=== PATIENT | female | born 1960 | race Caucasian/White ===

== ENCOUNTER 2018-07-09 11:51 | Inpatient (IN) ==
--- NOTE | 2018-07-09 12:31 | Diag Imaging Result Doc PS360 ---
EXAM: CHEST-1 VIEW HISTORY: sob TECHNIQUE: Chest single view COMPARISON: None. FINDINGS: The lungs are well expanded. There are increased interstitial markings in the mid lungs and bases. Heart is borderline mildly prominent. There is a small left pleural effusion. IMPRESSION: Bilateral infiltrates and/or pulmonary edema. Follow-up PA and lateral recommended. Electronically signed by Marek Santana 07/09/2018 12:29 PM
[2018-07-09 13:15] LABS: URINE SOURCE CLEAN CATCH
[2018-07-09 13:17] LABS: BILIRUBIN URINE NEGATIVE (NEGATIVE); BLOOD URINE NEGATIVE (NEGATIVE); COLOR YELLOW; GLUCOSE URINE NEGATIVE (NEGATIVE); KETONE URINE TRACE mg/dL (NEGATIVE); LEUKOCYTES URINE LARGE (NEGATIVE); NITRITE URINE NEGATIVE (NEGATIVE); PROTEIN URINE 30 mg/dL (NEGATIVE); SP GRAVITY URINE 1.021; TURBIDITY URINE CLEAR (CLEAR); UR EPITHELIAL CELLS <10 /HPF (<10); URINE BACTERIA NEGATIVE /HPF; UROBILINOGEN URINE NORMAL (NORMAL)
[2018-07-09 13:26] LABS: BASO# 0.04 X1000 (0.0-0.2); BASO% 0.2 % (0.0-0.8); EOS# 0.01 X1000 (0.0-0.7); EOS% 0.1 % (0.0-10.0); HEMATOCRIT 42.5 % (37.0-47.0); HEMOGLOBIN 14.1 g/dL (12.0-16.0); IMM GRAN% 0.5 % (0.0-0.5); LYMPH# 1.14 X1000 (1.2-3.4); LYMPH% 5.7 % (20.5-51.1); MCH 29.6 PG (27-31); MCHC 33.2 g/dL (33-37); MCV 89.3 FL (81-99); MONO# 1.04 X1000 (0.11-0.59); MONO% 5.2 % (1.7-9.3); MPV 10.1 FL (7.4-10.4); NEUT# 17.64 X1000 (1.4-6.5); NEUT% 88.3 % (42.2-75.2); PLT 298 X1000 (130-400); RBC 4.76 XMIL (4.2-5.4); RDW 14.4 % (11.5-14.5); WBC 19.97 X1000 (4.8-10.8)
[2018-07-09 13:32] LABS: INR 0.93; PROTIME 13.3 Seconds (11.0-16.0)
[2018-07-09 13:33] LABS: PTT 27.7 Seconds (22.3-41.8)
[2018-07-09 13:50] LABS: BANDS 2 % (0-1); LYMPHS 5 % (21-51); MONO 4 % (1-9); SEGS 89 % (42-75)
[2018-07-09 13:51] LABS: AGAP 16; ALB/GLOB RATIO 1.4; ALBUMIN 4.3 g/dL (3.5-5.0); ALKALINE PHOSPHATASE 105 U/L (32-104); BUN 22 mg/dL (8-22); CALCIUM 9.9 mg/dL (8.8-10.2); CHLORIDE 98 mmol/L (98-107); CK PROFILE 146 U/L (24-173); COSMO 288; CREATININE 0.9 mg/dL (0.5-0.9); ESTIMATED GFR > 60; GLUCOSE 230 mg/dL (70-104); GOT 22 U/L (10-30); GPT 24 U/L (10-36); POTASSIUM 4.4 mmol/L (3.5-5.1); SODIUM 139 mmol/L (136-145); TCO2 25 mmol/L (25-35); TOTAL BILIRUBIN 0.56 mg/dL (0.20-1.00); TOTAL PROTEIN 7.3 g/dL (6.3-8.3)
[2018-07-09] MEDS ORDERED: VANCOMYCIN 1 GM/NS 1 GM/250 ML IVPB IV ONE (14:07)
[2018-07-09] MEDS ORDERED: ZOSYN 2.25 GM in NS 50 ML IV ONE (14:07)
[2018-07-09] MEDS ORDERED: DUONEB (A & A) INH ONE (14:14)
[2018-07-09] MEDS ORDERED: DECADRON IV ONE (14:14)
--- NOTE | 2018-07-09 14:28 | PROVIDER DOCUMENTATION ---
This chart was entered by Laura Ribeiro Scribe, acting as scribe for Vi Godwin CRNP. HPI-Respiratory General - General Chief Complaint: Cough Stated Complaint: DR BELL REFERRED Time Seen by Provider: 07/09/18 13:55 Source: patient Allergies/Adverse Reactions: Patient Allergies Allergy/AdvReac Type Severity Reaction Status Date / Time levofloxacin [From Levaquin] Allergy Unknown Verified 07/09/18 13:05 nitrofurantoin Allergy Unknown Verified 07/09/18 13:05 [From Macrodantin] Sulfa (Sulfonamide Allergy Unknown Verified 07/09/18 13:05 Antibiotics) Home Medications: Home Medication List Medication Instructions Recorded Confirmed Last Taken Type Alprazolam [Xanax] 1 mg PO PRN PRN 03/27/18 07/09/18 04/02/18 23:00 History 1 Amitriptyline HCl 100 mg PO HS 03/27/18 07/09/18 04/02/18 23:00 History 100 Aspirin 81 mg PO DAILY 03/27/18 07/09/18 03/26/18 History 81 Fluticasone/Salmeterol [Advair 1 each IH BID 03/27/18 07/09/18 04/03/18 04:00 History 500-50 Diskus] 1 Gabapentin [Neurontin] 800 mg PO TID 03/27/18 07/09/18 04/02/18 23:00 History 800 Liraglutide [Victoza] 18 mg SQ DAILY 03/27/18 07/09/18 04/02/18 09:00 History 18 Metformin HCl [Glucophage] 1,000 mg PO BID 03/27/18 07/09/18 04/02/18 23:00 History 1000 Nitroglycerin [Nitrostat] 0.4 mg SL PRN PRN 03/27/18 07/09/18 Unknown History Prednisone 10 mg PO DAILY 03/27/18 07/09/18 04/03/18 04:00 History 1 Sumatriptan Succinate [Imitrex] 100 mg PO PRN PRN 03/27/18 07/09/18 03/27/18 History 100 Tiotropium [place] Inhaler 1 puff INH RTDAILY 03/27/18 07/09/18 04/02/18 09:00 History [Spiriva] 1 Topiramate [Topamax] 50 mg PO QHS 03/27/18 07/09/18 04/02/18 23:00 History 5 Venlafaxine [Effexor] 75 mg PO DAILY 03/27/18 07/09/18 04/03/18 04:00 History 75 Brimonidine 0.15% Ophth Soln 1 drop BOTH EYES BID 04/03/18 07/09/18 04/02/18 23:00 History [Alphagan P 0.15% Ophth Soln] 1 Latanoprost 0.005% Oph Soln 1 drop BOTH EYES HS 04/03/18 07/09/18 04/02/18 23:00 History [Xalatan 0.005% Oph Soln] 2 ATORVAstatin [Lipitor] 1 tab PO QHS 07/09/18 07/09/18 Unknown History Levothyroxine [Synthroid] 1 tab PO DAILY 07/09/18 07/09/18 Unknown History Metoprolol Succinate E.r. [Toprol 0.5 tab PO DAILY 07/09/18 07/09/18 Unknown History Xl] Nitrofurantoin Meade/Macrocryst 1 tab PO DAILY 07/09/18 07/09/18 Unknown History [Macrobid] - History of Present Illness-Resp Nature of Presenting Problem: 58 yof hx of pna presents with cc of productive cough x 1 month worsening on Saturday with green thick mucus. Also reports fever, chills, wheezing, and chest tightness. Reports went to Dr. Bell this morning whom did CXR and was diagnosed with PNA. Pt reports for the past 4 years that she had to be admitted for the past 4 years in once in June and once in November for Pneumonia. Reports having to use rescue inhaler and nebulizer frequently. Quality of Pain: reports: tightness Onset/Duration: reports: 2 days ago (Worsened), other (x2 months) Timing: reports: still present, getting worse Exposure: reports: unknown cause Cough Quality/Degree: reports: productive cough Episode Frequency: occasional episodes Current Respiratory Medication Therapy: Initiated albuterol/atrovent inhale, Initiated A/A nebulizer, Initiated prednisone, Initiated albuterol, Initiated singulair Modifying Factors: improves with: albuterol inhaler, albuterol nebulizer, rest. worse with: exertion Associated Symptoms: reports: chest pain/soreness, cough, fever/chills, muscle/bodyaches, shortness of breath, wheezing. denies: dizziness, facial pain, headache, nasal congestion, sore throat, sweaty Similar Symptoms Previously?: Yes (See HPI) Recently seen or treated by another doctor?: Yes (Dr. Bell PCP) Review of Systems - Adult - REVIEW OF SYSTEMS - ADULT Constitutional: reports: chills, fever. denies: fatique, weight gain, weight loss Eyes: denies: discharge, blurred vision, redness Ears, Nose, Mouth & Throat: denies: ear pain, sinus problem, hoarseness, throat pain Cardiovascular: reports: chest pain (Chest tightness/pain from coughing). denies: irregular heart rate, palpitations, syncope Respiratory: reports: see HPI, cough, shortness of breath, wheezing. denies: dyspnea on exertion Gastrointestinal: denies: abdominal pain, nausea, vomiting Genitourinary: denies: dysuria, frequent UTI's, urgency Musculoskeletal: reports: muscle aches. denies: bone pain, joint pain, neck pain Integumentary: denies: hives, mole changes, skin thickening Neurological: reports: no symptoms reported Psychiatric: reports: no symptoms reported Endocrine: reports: no symptoms reported All Other Systems: Reviewed and Negative Past History - Adult - PAST MEDICAL HISTORY-ADULT Review of Records: reports: Old Records Reviewed, Nursing Assessment Review, Medications Reviewed, Social history reviewed & non-contributory. Major Childhood Illnesses: reports: denies history Cardiovascular: reports: CAD, HTN, hyperlipidemia Respiratory: reports: bronchitis (chronic), pneumonia, other (sarcoidosis & nocturnal hypoxemia) Gastrointestinal: reports: denies history Obstetrical/Gynecological: reports: endometriosis Genitourinary: reports: kidney stones Musculoskeletal: reports: denies history Neurological: reports: denies history Psychiatric: reports: anxiety, depression Endocrine/Immune: reports: Diabetes Diabetes Type: Type 2 Diabetes controlled by:: PO Meds Other Conditions: reports: cataract/glaucoma, eye problems/injury - PRIOR HOSPITALIZATIONS Prior Hospitalizations: reports: for similar symptoms Hospitalization Comment: Reports every June/November for past 4 years - IMMUNIZATION STATUS Childhood Immunizations: See Nurse Assessment Flu Vaccine: See Nurse Assessment - FAMILY HISTORY Family History: reviewed, not pertinent - SOCIAL HISTORY Smoking: denies Substance Use: none/never Physical Exam-General - PHYSICAL EXAM-ADULT Initial Vital Signs Reviewed: Yes - CONSTITUTIONAL General Appearance: alert, mild distress. negative: appears well - EYES Eyes: PERRL/EOMI, pink conjunctivae - HEAD, EARS, NOSE, MOUTH & THROAT HENMT: normocephalic/atraumatic, moist mucous membranes - NECK Neck: non-tender, full range of motion, supple, normal inspection - RESPIRATORY Respiratory: chest non-tender, no pleuratic chest pain, no accessory muscle use, wheezing (all lung masterson moderate.), other (pt is winded) - CARDIOVASCULAR Cardiovascular: regular rate, rhythm, no gallop, no murmur - GASTROINTESTINAL (ABDOMEN) Abdominal Exam: non tender, soft, no organomegaly, no pulsatile mass - MUSCULOSKELETAL Extremity: normal range of motion, non-tender, normal gait - SKIN Integumentary: normal color, normal turgor, warm/dry - NEUROLOGIC Neurologic: grossly normal - PSYCHIATRIC Psych/Mental Status: normal mood/affect, normal thought content, normal thought process, oriented x 3 Progress - PLAN OF CARE/RESULTS Progress/Plan/Lab Results: Vital Signs - 8 hr 07/09/18 12:05 07/09/18 12:40 07/09/18 13:53 Temperature 96.8 F L Pulse Rate 104 H 96 H 91 H Respiratory Rate 24 41 H 28 H Blood Pressure 96/48 97/53 109/66 O2 Sat by Pulse Oximetry 94 L 94 L 93 L 07/09/18 14:01 07/09/18 14:02 07/09/18 14:10 Temperature 98.3 F Pulse Rate 90 89 88 Respiratory Rate 38 H 37 H 25 H Blood Pressure 107/64 O2 Sat by Pulse Oximetry 94 L 94 L 96 07/09/18 14:20 07/09/18 14:30 07/09/18 14:31 Temperature Pulse Rate 88 83 83 Respiratory Rate 29 H 23 37 H Blood Pressure 96/64 O2 Sat by Pulse Oximetry 94 L 94 L 93 L 07/09/18 14:40 07/09/18 14:50 07/09/18 15:00 Temperature Pulse Rate 85 82 84 Respiratory Rate 42 H 35 H 34 H Blood Pressure O2 Sat by Pulse Oximetry 94 L 95 92 L 07/09/18 15:01 07/09/18 15:02 07/09/18 15:10 Temperature Pulse Rate 83 83 83 Respiratory Rate 31 H 37 H 25 H Blood Pressure 106/63 O2 Sat by Pulse Oximetry 93 L 93 L 93 L 07/09/18 15:46 Temperature Pulse Rate 83 Respiratory Rate 34 H Blood Pressure O2 Sat by Pulse Oximetry 92 L Laboratory Results - last 24 hr 07/09/18 07/09/18 07/09/18 12:53 12:53 12:53 WBC 19.97 H RBC 4.76 Hgb 14.1 Hct 42.5 MCV 89.3 MCH 29.6 MCHC 33.2 RDW Std Deviation 14.4 Plt Count 298 MPV 10.1 Immature Gran % (Auto) 0.5 Neut % (Auto) 88.3 H Lymph % (Auto) 5.7 L Meade % (Auto) 5.2 Eos % (Auto) 0.1 Baso % (Auto) 0.2 Immature Gran # (Auto) 0.10 H Neut # (Auto) 17.64 H Lymph # (Auto) 1.14 L Meade # (Auto) 1.04 H Eos # (Auto) 0.01 Baso # (Auto) 0.04 Segmented Neutrophils 89 H Band Neutrophils 2 H Lymphocytes 5 L Monocytes 4 PT 13.3 INR 0.93 PTT (Actin FS) 27.7 Sodium 139 Potassium 4.4 Chloride 98 Carbon Dioxide 25 Anion Gap 16 BUN 22 Creatinine 0.9 Estimated GFR/1.73 m2 > 60 BUN/Creatinine Ratio 24 Glucose 230 H Calculated Osmolality 288 Calcium 9.9 Total Bilirubin 0.56 AST 22 ALT 24 Alkaline Phosphatase 105 H Creatine Kinase 146 Troponin T Total Protein 7.3 Albumin 4.3 Globulin 3.0 Albumin/Globulin Ratio 1.4 Plasma Lactate Urine Source Urine Color Urine Turbidity Urine pH Ur Specific Hancock Urine Protein Ur Glucose (Stick) Ur Ketones (Stick) Urine Blood Urine Nitrite Urine Bilirubin Urobilinogen Dipstick Urine Leukocytes Urine WBC (Auto) Urine RBC (Auto) U Epithel Cells (Auto) Urine Bacteria (Auto) 07/09/18 07/09/18 07/09/18 12:53 12:53 13:00 WBC RBC Hgb Hct MCV MCH MCHC RDW Std Deviation Plt Count MPV Immature Gran % (Auto) Neut % (Auto) Lymph % (Auto) Meade % (Auto) Eos % (Auto) Baso % (Auto) Immature Gran # (Auto) Neut # (Auto) Lymph # (Auto) Meade # (Auto) Eos # (Auto) Baso # (Auto) Segmented Neutrophils Band Neutrophils Lymphocytes Monocytes PT INR PTT (Actin FS) Sodium Potassium Chloride Carbon Dioxide Anion Gap BUN Creatinine Estimated GFR/1.73 m2 BUN/Creatinine Ratio Glucose Calculated Osmolality Calcium Total Bilirubin AST ALT Alkaline Phosphatase Creatine Kinase Troponin T < 0.010 Total Protein Albumin Globulin Albumin/Globulin Ratio Plasma Lactate 2.3 H Urine Source CLEAN CATCH Urine Color YELLOW Urine Turbidity CLEAR Urine pH 7.0 Ur Specific [place] 1.021 Urine Protein 30 A Ur Glucose (Stick) NEGATIVE Ur Ketones (Stick) TRACE A Urine Blood NEGATIVE Urine Nitrite NEGATIVE Urine Bilirubin NEGATIVE Urobilinogen Dipstick NORMAL Urine Leukocytes LARGE A Urine WBC (Auto) 10-20 A Urine RBC (Auto) 10-20 A U Epithel Cells (Auto) <10 Urine Bacteria (Auto) NEGATIVE 07/09/18 15:16 WBC RBC Hgb Hct MCV MCH MCHC RDW Std Deviation Plt Count MPV Immature Gran % (Auto) Neut % (Auto) Lymph % (Auto) Meade % (Auto) Eos % (Auto) Baso % (Auto) Immature Gran # (Auto) Neut # (Auto) Lymph # (Auto) Meade # (Auto) Eos # (Auto) Baso # (Auto) Segmented Neutrophils Band Neutrophils Lymphocytes Monocytes PT INR PTT (Actin FS) Sodium Potassium Chloride Carbon Dioxide Anion Gap BUN Creatinine Estimated GFR/1.73 m2 BUN/Creatinine Ratio Glucose Calculated Osmolality Calcium Total Bilirubin AST ALT Alkaline Phosphatase Creatine Kinase Troponin T Total Protein Albumin Globulin Albumin/Globulin Ratio Plasma Lactate 1.5 Urine Source Urine Color Urine Turbidity Urine pH Ur Specific [place] Urine Protein Ur Glucose (Stick) Ur Ketones (Stick) Urine Blood Urine Nitrite Urine Bilirubin Urobilinogen Dipstick Urine Leukocytes Urine WBC (Auto) Urine RBC (Auto) U Epithel Cells (Auto) Urine Bacteria (Auto) Orders Category Date Time Status Cardiac Monitoring DIRECTED Care 07/09/18 12:13 Active IV Insertion ORDERED Care 07/09/18 12:13 Completed Notify MD of + Sepsis Screen NOW Care 07/09/18 12:13 Active CHEST-1 VIEW [RAD] Stat Exams 07/09/18 12:13 Completed BLOOD CULTURE [BLDCUL] Stat Lab 07/09/18 12:53 Results CBC WITH DIFF [HEME] Stat Lab 07/09/18 12:53 Completed CK PROFILE [SP CHEM] Stat Lab 07/09/18 12:53 Completed COMPREHENSIVE METABOLIC PANEL [CHEM] Stat Lab 07/09/18 12:53 Completed LACTATE, PLASMA [CHEM] Lab 07/09/18 15:16 Completed LACTATE, PLASMA [CHEM] Lab 07/09/18 18:15 Uncollected LACTATE, PLASMA [CHEM] Q3H Lab 07/09/18 13:00 Completed PROTIME WITH INR [COAG] Stat Lab 07/09/18 12:53 Completed PTT [COAG] Stat Lab 07/09/18 12:53 Completed TROPONIN T Stat Lab 07/09/18 12:53 Completed URINALYSIS W/POSS RFLX CULT [URINALYSIS] Stat Lab 07/09/18 12:53 Completed URINE CULTURE [RM] Routine Lab 07/09/18 13:31 Received Albuterol 2.5MG/Ipratrop 0.5MG [Duoneb (A & A)] Med 07/09/18 14:14 Discontinued 3 ml INH NOW ONE Albuterol 2.5MG/Ipratrop 0.5MG [Duoneb (A & A)] Med 07/09/18 15:39 Active 3 ml INH Q2H PRN PRN Dexamethasone [Decadron] Med 07/09/18 14:14 Discontinued 10 mg IV NOW ONE Piperacillin/Tazobactam [Zosyn] 2.25 gm Med 07/09/18 14:07 Discontinued 0.9% Sodium Chloride Inj [Ns] 50 ml IV NOW Vancomycin 1 gm/Ns Med 07/09/18 14:07 Discontinued 1 gm in 250 ml IV NOW Aerosol Treatments Routine Oth 07/09/18 14:17 Active Aerosol Treatments Routine Oth 07/09/18 15:39 Active Aerosol Treatments Stat Oth 07/09/18 14:17 Completed Aerosol Treatments Stat Oth 07/09/18 15:39 Completed Oxygen Device Stat Oth 07/09/18 12:13 Active EKG [EKG] Stat Ther 07/09/18 15:02 Ordered Transfer/Admit Order [TRANSFER] Routine Transfer 07/09/18 15:10 Ordered Lab results, imaging results, and plan of care discussed with patient who verbalizes understanding. Result Diagrams: 07/09/18 12:53 07/09/18 12:53 - XRAY 1 XRAY: Bilateral XRAY Study: Chest Impression: Abnormal (EXAM: CHEST-1 VIEW HISTORY: sob TECHNIQUE: Chest single view COMPARISON: None. FINDINGS: The lungs are well expanded. There are increased interstitial markings in the mid lungs and bases. Heart is borderline mildly prominent. There is a small left pleural effusion. IMPRESSION: Bilateral infiltrates and/or pulmonary edema. Follow-up PA and lateral recommended. Electronically signed by Marek Santana 07/09/2018 12:29 PM 07/09/18 1229 Interpreting Physician: Marek Santana MD Dictated Date/Time: 07/09/18 1228) - CONSULTS/PCP/HOSPITALIST Notification #1 *Consult/PCP/Hospitalist*: ERIC Rojas Hospitalist Time Discussed: 14:25 Reason/Comments: SIRS +ve, PNA Consult Disposition: Admit Departure - Departure Date of Disposition Decision: 07/09/18 Time of Disposition Decision: 14:25 DIAGNOSIS: SIRS (systemic inflammatory response syndrome) Bilateral pneumonia Qualifiers: Pneumonia type: due to unspecified organism Lung location: unspecified part of lung Qualified Code(s): J18.9 - Pneumonia, unspecified organism Disposition: ADMITTED INPATIENT 09 Certified Medical Emergency: Emergent Condition: Fair - Critical Care Note This patient required my direct & personal management of CC.: No Attestation - Physician/ GRETA Attestation Patient care was provided by Advanced Practice Provider:: Yes Advanced Practice Provider:: Vi Godwin Advanced Practice Provider documentation review:: The Mid-level provider documentation, treatment plan and medical decision making was reviewed by the physician who agrees with all treatment and medical decision making by the P. The physician spent face to face time with patient:: No Advanced Practice Provider documentation review:: Supervising physician onsite and consulted in the evaluation and care of this patient. The physician did not have a face to face encounter with the patient. This chart was documented by the indicated scribe, (Laura Ribeiro Scribe) and accurately reflects the services I performed and decisions made by me, Vi Godwin CRNP, as attested by the provider's signature.
[2018-07-09] MEDS ORDERED: DUONEB (A & A) INH PRN (15:39)
--- NOTE | 2018-07-09 18:26 | HISTORY AND PHYSICAL ---
PRIMARY CARE PHYSICIAN: Janice Barber MD. CHIEF COMPLAINT: Productive cough x1 month that progressively worsened. Subjective fever, chest tightness. Was seen at PCP office today. Had a chest x-ray and diagnosed with pneumonia, then sent to the ER for evaluation. HISTORY OF PRESENTING ILLNESS: This is a 58-year-old female who presents to [facility] ER after she was seen by her primary care physician today. States she has had a productive cough for 1 month that has progressively worsened, a subjective fever and chest tightness. She has a history of sarcoidosis and asthma. She had a chest x-ray at the primary care physician's office today that read pneumonia, so he sent her to the emergency room for evaluation. When she arrived, she had an O2 saturation of 94%. Her laboratory data showed a white blood cell count of 19.97, blood sugar was 230, plasma lactate of 2.3. Her chest x-ray showed bilateral infiltrates and/or pulmonary edema so she is being admitted for further evaluation and treatment. PAST MEDICAL HISTORY: Sarcoidosis, asthma, depression, diabetes type 2, hyperlipidemia, kidney stones, hypothyroidism, and neuropathy. PAST SURGICAL HISTORY: Bladder repair, hysterectomy and tonsillectomy. FAMILY HISTORY: Reviewed and noncontributory. SOCIAL HISTORY: She currently lives alone. Denied any tobacco, alcohol or illicit drug use. ALLERGIES: To Levaquin, Macrodantin, and sulfa drugs. HOME MEDICATIONS: A current list needs to be obtained, reconciled, reviewed and then will restart as appropriate. We will place an order for nursing to update and confirm home medications. LABORATORY DATA: Showed a white blood cell count of 19.97, hemoglobin 14.1, hematocrit 42.5, platelets 298. PT and INR of 13.3 and 0.93. Sodium of 139, potassium 4.4, chloride 98, CO2 of 25, BUN of 22, creatinine of 0.9 glucose 230. Creatine kinase of 146 with a troponin of less than 0.010. Plasma lactate of 2.3. Urinalysis was negative except for a large amount of leukocytes, but no bacteria. Chest x-ray showed bilateral infiltrates and/or pulmonary edema with a followup PA and lateral recommended. REVIEW OF SYSTEMS: She was positive for a subjective fever. Denied any chills, blurred vision, dizziness, chest pain. She has had a productive cough, shortness of breath denied any abdominal pain, constipation, diarrhea, burning or hurting with urination. PHYSICAL EXAMINATION: VITAL SIGNS: On arrival, she had a temperature of 96.8, pulse 104, respirations 24, blood pressure of 96/48, saturating 94% on room air. Currently, she has a blood pressure of 106/63 saturating 93% on room air. GENERAL: This is a 58-year-old, female who is sitting up in the bed and answers questions appropriately. HEENT: Normocephalic, atraumatic. Normal ENT inspection. Oropharynx and nares are clear. Eyes: Pupils are equal, round, and reactive to light and accommodation. Extraocular movements are intact. NECK: Normal inspection. Normal range of motion. LUNGS: With wheezing and rhonchi throughout entire posterior lung masterson. Equal lung expansion. Chest wall movement noted. Cough noted also, but nonproductive at this time. HEART: Regular rate and rhythm. No murmurs, rubs, or gallops. ABDOMEN: Soft, nontender, nondistended. Bowel sounds are present x4 quadrants. MUSCULOSKELETAL: She has 5/5 strength x4 extremities. NEUROLOGICAL: The cranial nerves 2-12 appear grossly intact. ASSESSMENT: 1. Sepsis. 2. Bilateral pneumonia. 3. Leukocytosis. 4. History of sarcoidosis. 5. Diabetes type 2. 6. Hypothyroidism. PLAN: She is being admitted to the medical unit. Placed on telemetry. Placed on O2 per protocol. Pattern blood sugars with sliding scale insulin, diabetic diet. Turn, cough, deep breathe q.2. DuoNeb q.4 hours and q.2 p.r.n. Solu-Medrol 80 mg IV q.8 and will wean as she improves, normal saline at 125 mL an hour, vancomycin per pharmacy protocol and Zosyn 3.375 g IV q.6. Again, nursing will need to update and confirm home medications and recheck a CBC, BMP in the a.m. with further orders after seen by attending. Dictated by ERIC Melendez for Jose Ott MD cc: ERIC Melendez MD Marlin D. Gill, MD Patient seen and examined by me. I agree with the assessment and plan. Dr. Ott. [facility]ENTER[facility]
[2018-07-09] MEDS ORDERED: HUMALOG SUBQ ONE (19:43)
[2018-07-09] MEDS: DUONEB (A & A) INH SCH ×2 (19:43→23:30)
[2018-07-09] MEDS ORDERED: VANCOMYCIN IV PER PHARMACY MISC SCH (19:43)
[2018-07-10] MEDS: NS 1,000 ML IV SCH ×5 (00:12→13:10)
[2018-07-10] MEDS: ZOSYN 3.375 GM in NS 50 ML IV SCH ×5 (00:13→23:15)
[2018-07-10] MEDS: SOLU-MEDROL IV SCH ×4 (00:13→20:30)
[2018-07-10] MEDS: ELAVIL PO SCH ×2 (00:15→01:28)
[2018-07-10] MEDS: TOPAMAX PO SCH ×2 (00:15→01:28)
[2018-07-10] MEDS: DUONEB (A & A) INH SCH ×5 (03:30→20:29)
[2018-07-10] MEDS: VANCOMYCIN 1 GM/NS 1 GM/250 ML IVPB IV SCH (06:01)
[2018-07-10 06:18] LABS: BASO# 0.01 X1000 (0.0-0.2); BASO% 0.1 % (0.0-0.8); HEMATOCRIT 35.8 % (37.0-47.0); HEMOGLOBIN 11.6 g/dL (12.0-16.0); IMM GRAN# 0.08 X1000 (0.0-0.04); IMM GRAN% 0.8 % (0.0-0.5); LYMPH# 0.83 X1000 (1.2-3.4); LYMPH% 8.3 % (20.5-51.1); MCH 29.2 PG (27-31); MCHC 32.4 g/dL (33-37); MCV 90.2 FL (81-99); MONO# 0.33 X1000 (0.11-0.59); MONO% 3.3 % (1.7-9.3); MPV 10.2 FL (7.4-10.4); NEUT# 8.74 X1000 (1.4-6.5); NEUT% 87.5 % (42.2-75.2); PLT 264 X1000 (130-400); RBC 3.97 XMIL (4.2-5.4); WBC 9.99 X1000 (4.8-10.8)
[2018-07-10 06:29] LABS: AGAP 18; BUN 25 mg/dL (8-22); CALCIUM 8.9 mg/dL (8.8-10.2); CHLORIDE 98 mmol/L (98-107); COSMO 289; CREATININE 0.8 mg/dL (0.5-0.9); ESTIMATED GFR > 60; GLUCOSE 228 mg/dL (70-104); POTASSIUM 3.4 mmol/L (3.5-5.1); SODIUM 139 mmol/L (136-145); TCO2 23 mmol/L (25-35)
--- NOTE | 2018-07-10 07:15 | EKG Report ---
Test Performed on : 07/09/2018 10:13:11 PM Test Reason : Chest tightness/SOB Blood Pressure : / mmHG Vent. Rate : 080 BPM Atrial Rate : 080 BPM P-R Int : 166 ms QRS Dur : 100 ms QT Int : 410 ms P-R-T Axes : 029 -32 078 degrees QTc Int : 472 ms Normal sinus rhythm. Left axis deviation ST & T wave abnormality, consider anterior ischemia Prolonged QT Abnormal ECG No previous ECGs available Unconfirmed Result
[2018-07-10] MEDS ORDERED: LASIX IV ONE (12:01)
--- NOTE | 2018-07-10 12:17 | PROGRESS NOTE ---
DATE: 07/10/2018 SUBJECTIVE: Patient resting in bed. She is somewhat dyspneic at rest. OBJECTIVE: Vital Signs: Temperature 97.8 degrees, pulse 78, respirations 18, blood pressure 122/70, and oxygen saturation is 95%. HEENT: She is atraumatic, normocephalic. Cardiovascular: S1, S2. Respiratory: She does have occasional rales noted in both lung masterson. Abdomen: Soft, nontender. No masses felt. Extremities: No evidence of edema. Central nervous system: No obvious focal deficits noted. LABORATORY: WBC is 9.9, hematocrit 35.8 with a platelet count of 264,000. Sodium is 139, potassium 3.4, chloride is 98, bicarb 23, BUN is 25, creatinine 0.8, and glucose is 228. UA shows large amount of leukocytes with 10-20 WBCs per high-power field. X-ray of chest done on 07/09/2018 shows evidence of bilateral pneumonia and pulmonary edema. ASSESSMENT AND PLAN: 1. Probable sepsis. Maintain patient on intravenous fluids. Continue antibiotics. Await culture report. 2. Bilateral pneumonia. Follow up on sputum culture and blood cultures. Continue antibiotics. 3. Probable pulmonary edema. We will cut down on the patient's IV fluids at this time. Monitor intakes and outputs as well as daily weights. Check a proBNP level, and give a dose of Lasix. 4. Hypokalemia. Replace potassium. Check magnesium level. 5. History of sarcoidosis. Aware. 6. Diabetes mellitus type 2. Monitor blood sugar levels. Maintain patient on sliding scale insulin. 7. Hypothyroidism. Maintain patient on levothyroxine. 8. Probable UTI. Follow up on urine cultures. 9. Deep vein thrombosis prophylaxis. Lovenox. 10. Gastrointestinal prophylaxis. Proton pump inhibitor. cc: Jose Ott MD
--- NOTE | 2018-07-10 12:20 | Diag Imaging Result Doc PS360 ---
EXAM: CHEST-1 VIEW 07/10/2018 HISTORY: pneumonia TECHNIQUE: AP portable at 1208 COMMENT: There is increasing opacification of the left lower lobe and lingula compared to 07/09/2018. The left heart border is now completely obscured. The right lung is essentially unchanged. IMPRESSION: Worsened left upper lobe and lower lobe pneumonia. Electronically signed by Flavio Foster 07/10/2018 12:18 PM
[2018-07-10 12:23] LABS: HEMOGLOBIN A1C 7.8 % (4.8-6.0)
[2018-07-10] MEDS: POTASSIUM CHLORIDE 20 MEQ/SWI 20 MEQ/100 ML IVPB IV SCH ×2 (13:10→16:31)
[2018-07-10] MEDS ORDERED: KLOR-CON PO ONE (16:35)
[2018-07-11] MEDS: VANCOMYCIN 1 GM/NS 1 GM/250 ML IVPB IV SCH ×2 (00:15→18:33)
[2018-07-11] MEDS: DUONEB (A & A) INH SCH ×6 (00:29→23:35)
[2018-07-11] MEDS: HUMULIN R SUBQ SCH ×6 (01:34→21:45)
[2018-07-11] MEDS: NS 1,000 ML IV SCH ×3 (04:45→18:35)
[2018-07-11] MEDS: ZOSYN 3.375 GM in NS 50 ML IV SCH ×4 (04:46→21:11)
[2018-07-11] MEDS: SOLU-MEDROL IV SCH ×3 (04:54→21:11)
[2018-07-11] MEDS: PRILOSEC PO SCH (09:57)
[2018-07-11] MEDS: LOVENOX SUBQ SCH (09:57)
--- NOTE | 2018-07-11 11:38 | PROGRESS NOTE ---
DATE: 07/11/2018 SUBJECTIVE: The patient is resting in bed. Doing better today. OBJECTIVE: Vital signs: Temperature 97.8 degrees, pulse is 85, respiratory rate 21, blood pressure is 122/67, oxygen saturation 99%. HEENT: Atraumatic, normocephalic. Cardiovascular: S1, S2. Respiratory: Has occasional rales noted in both lung masterson. Abdomen: Soft, nontender. No masses felt. Extremities: No evidence of edema. Central nervous system: No obvious focal deficit noted. LABORATORY DATA: Blood glucose is 283. ASSESSMENT AND PLAN: 1. Probable sepsis. Continue intravenous fluids, antibiotics. Await culture report. 2. Bilateral pneumonia. Follow up on sputum and blood cultures. Continue antibiotics. 3. Probable pulmonary edema. Diuretics as needed. It Monitor intakes and outputs, as well as daily weights. Obtain 2D echo of the heart. 4. Hypokalemia. Potassium replaced. 5. History of sarcoidosis. Aware. 6. Type 2 diabetes mellitus. Continue blood sugar monitoring as well as sliding scale insulin. 7. Hypothyroidism. Continue levothyroxine. 8. Probable urinary tract infection. Continue antibiotics. 9. Deep vein thrombosis prophylaxis. Lovenox. 10. Gastrointestinal prophylaxis. Proton pump inhibitor. cc: Jose Ott MD
[2018-07-11] MEDS ORDERED: XANAX PO PRN (19:47)
[2018-07-11] MEDS ORDERED: NITROGLYCERIN SL PRN (19:47)
[2018-07-11] MEDS: TOPAMAX PO SCH (21:12)
[2018-07-11] MEDS: NEURONTIN PO SCH (21:12)
[2018-07-11] MEDS: LIPITOR PO SCH (21:12)
[2018-07-11] MEDS: ELAVIL PO SCH (21:12)
[2018-07-11] MEDS: GLUCOPHAGE PO SCH (21:12)
[2018-07-11] MEDS: ALPHAGAN P 0.15% OPHTH SOLN BOTH EYES SCH (21:46)
[2018-07-11] MEDS: XALATAN 0.005% OPH SOLN BOTH EYES SCH (21:46)
[2018-07-12] MEDS: ADVAIR 500/50 DISKUS INH SCH ×3 (01:02→19:42)
[2018-07-12] MEDS: DUONEB (A & A) INH SCH ×6 (03:36→23:23)
[2018-07-12] MEDS: ZOSYN 3.375 GM in NS 50 ML IV SCH ×4 (04:41→22:41)
[2018-07-12] MEDS: NS 1,000 ML IV SCH (04:41)
[2018-07-12] MEDS: SOLU-MEDROL IV SCH ×3 (04:41→22:42)
[2018-07-12] MEDS: HUMULIN R SUBQ SCH ×4 (06:30→22:51)
[2018-07-12] MEDS: PRILOSEC PO SCH (06:31)
[2018-07-12] MEDS: SPIRIVA INH SCH (07:52)
[2018-07-12] MEDS: ALPHAGAN P 0.15% OPHTH SOLN BOTH EYES SCH ×2 (09:47→22:41)
[2018-07-12] MEDS: VICTOZA SUBQ SCH (09:48)
[2018-07-12] MEDS: NEURONTIN PO SCH ×3 (09:48→22:42)
[2018-07-12] MEDS: TOPROL XL PO SCH (09:48)
[2018-07-12] MEDS: LOVENOX SUBQ SCH (09:48)
[2018-07-12] MEDS: SYNTHROID PO SCH (09:49)
[2018-07-12] MEDS: GLUCOPHAGE PO SCH (09:49)
[2018-07-12] MEDS: ASPIRIN PO SCH (09:49)
[2018-07-12] MEDS: EFFEXOR PO SCH (09:49)
[2018-07-12] MEDS: VANCOMYCIN 1 GM/NS 1 GM/250 ML IVPB IV SCH (13:08)
--- NOTE | 2018-07-12 15:37 | PROGRESS NOTE ---
DATE: 07/12/2018 SUBJECTIVE: Today Ms. Ribeiro refers to be doing fairly okay. Still continues to be having some difficulty breathing. OBJECTIVE: Vital signs: Blood pressure is 119/68, pulse is 89, respirations 71, temperature is 97.9 degrees. General: Ms. Ribeiro is a 58-year-old female. She is in bed. She seems to be in mild respiratory distress. HEENT: Mucosa is pink and moist. She does have this reza fascial with central obesity, which is consistent with her chronic steroid use (secondary [place]). Chest: Air entry is bilaterally reduced. There is diffuse end expiratory wheezing and some crackles. Cardiovascular: Regular rate and rhythm. Abdomen: Soft, distended, nontender. Bowel sounds present. Extremities: No pedal edema. Central nervous system: Patient is awake, alert, and oriented. The patient also has a very fragile skin with numerous telangiectasias. LABORATORY DATA: Glucose is 292. LDH is 238. DIAGNOSTIC STUDIES: A chest x-ray which was done on the show worsening left upper lobe pneumonia. ASSESSMENT: 1. Acute hypoxemic respiratory failure. 2. Multifocal pneumonia in a patient who is on chronic steroids for sarcoidosis. We have her covered on regular but broad-spectrum antibiotic coverage. However, this type of patient is also remarkably prone to PJP and other atypical pathogens. Unfortunately, Ms Ribeiro is said to be allergic to sulfa, so we will get Infectious Disease to help us with her antimicrobial management. 3. History of sarcoidosis, on chronic steroid therapy. 4. Diabetes mellitus type 2. We are going to continue with insulin regimen whilst patient is in hospital. We will withhold her medications. 5. Hypothyroidism. We will continue with thyroid supplement. 6. 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 Noted. cc: Delvis Mercer MD MTDD
--- NOTE | 2018-07-12 20:02 | Diag Imaging Result Doc PS360 ---
EXAM: CT THORAX W/CONTRAST 07/12/2018 HISTORY: pneumonia worsening. TECHNIQUE: This exam was performed using automated exposure control, adjustment of mA or kV according to patient size, and/or use of iterative reconstruction technique. COMMENT: There is right paratracheal adenopathy with a node on image 16 measuring over 15 mm. There are some calcified nodes in the right paratracheal, aorticopulmonary window, hilar and subcarinal regions. There is ill-defined opacity present in bilaterally in both upper lobes lower lobes and the right middle lobe with bronchiectasis. There is mild honeycombing in the posterior costophrenic sulcus of the right lower lobe. While there are no previous thoracic studies available for comparison, comparison with the previous abdominal study of 03/18/2018 demonstrates worsening in the coarse opacities in both lower lobes as well as the bronchiectatic changes. The honeycombing present in the lingula and lower lobes has not changed significantly. There are granulomatous calcifications in the liver and spleen. The regional skeleton is intact. IMPRESSION: Mild pulmonary fibrosis. Bronchiectasis and bronchopneumonia. The possibility of chronic aspiration and/or granulomatous disease as a cause of the bronchiectasis is suggested. Electronically signed by Flavio Foster 07/12/2018 8:00 PM
[2018-07-12] MEDS: XALATAN 0.005% OPH SOLN BOTH EYES SCH (22:41)
[2018-07-12] MEDS: LIPITOR PO SCH (22:42)
[2018-07-12] MEDS: ELAVIL PO SCH (22:43)
[2018-07-12] MEDS: TOPAMAX PO SCH (22:44)
[2018-07-13] MEDS: VANCOMYCIN 1 GM/NS 1 GM/250 ML IVPB IV SCH ×2 (00:40→15:36)
[2018-07-13] MEDS: DUONEB (A & A) INH SCH ×6 (03:07→23:18)
[2018-07-13] MEDS: ZOSYN 3.375 GM in NS 50 ML IV SCH (03:49)
[2018-07-13] MEDS: SOLU-MEDROL IV SCH ×3 (03:49→21:34)
[2018-07-13] MEDS: HUMULIN R SUBQ SCH ×4 (06:10→21:40)
[2018-07-13] MEDS: PRILOSEC PO SCH (06:11)
[2018-07-13 07:43] LABS: BASO# 0.06 X1000 (0.0-0.2); BASO% 0.6 % (0.0-0.8); HEMATOCRIT 35.8 % (37.0-47.0); HEMOGLOBIN 11.6 g/dL (12.0-16.0); IMM GRAN# 0.83 X1000 (0.0-0.04); IMM GRAN% 7.7 % (0.0-0.5); LYMPH# 0.64 X1000 (1.2-3.4); LYMPH% 5.9 % (20.5-51.1); MCH 29.2 PG (27-31); MCHC 32.4 g/dL (33-37); MCV 90.2 FL (81-99); MONO# 0.51 X1000 (0.11-0.59); MONO% 4.7 % (1.7-9.3); MPV 9.4 FL (7.4-10.4); NEUT# 8.79 X1000 (1.4-6.5); NEUT% 81.1 % (42.2-75.2); PLT 299 X1000 (130-400); RBC 3.97 XMIL (4.2-5.4); RDW 14.4 % (11.5-14.5); WBC 10.83 X1000 (4.8-10.8)
[2018-07-13 07:56] LABS: AGAP 10; ALB/GLOB RATIO 1.4; ALBUMIN 3.6 g/dL (3.5-5.0); ALKALINE PHOSPHATASE 69 U/L (32-104); BUN 15 mg/dL (8-22); CALCIUM 8.6 mg/dL (8.8-10.2); CHLORIDE 106 mmol/L (98-107); COSMO 284; CREATININE 0.5 mg/dL (0.5-0.9); ESTIMATED GFR > 60; GLUCOSE 234 mg/dL (70-104); GOT 17 U/L (10-30); GPT 27 U/L (10-36); POTASSIUM 4.2 mmol/L (3.5-5.1); SODIUM 138 mmol/L (136-145); TCO2 22 mmol/L (25-35); TOTAL BILIRUBIN 0.29 mg/dL (0.20-1.00); TOTAL PROTEIN 6.2 g/dL (6.3-8.3)
[2018-07-13] MEDS: SPIRIVA INH SCH (08:19)
[2018-07-13] MEDS: ADVAIR 500/50 DISKUS INH SCH ×2 (08:19→19:48)
[2018-07-13 08:25] LABS: BANDS 2 % (0-1); LYMPHS 10 % (21-51); MONO 2 % (1-9); SEGS 80 % (42-75)
[2018-07-13] MEDS: TOPROL XL PO SCH (09:27)
[2018-07-13] MEDS: ZITHROMAX PO SCH (09:27)
[2018-07-13] MEDS: LOVENOX SUBQ SCH (09:28)
[2018-07-13] MEDS: EFFEXOR PO SCH (09:28)
[2018-07-13] MEDS: NEURONTIN PO SCH ×3 (09:28→21:33)
[2018-07-13] MEDS: SYNTHROID PO SCH (09:28)
[2018-07-13] MEDS: ALPHAGAN P 0.15% OPHTH SOLN BOTH EYES SCH ×2 (09:28→21:32)
[2018-07-13] MEDS: ASPIRIN PO SCH (09:28)
[2018-07-13] MEDS: VICTOZA SUBQ SCH (09:29)
[2018-07-13] MEDS: MAXIPIME 2 GM in NS 100 ML IV SCH ×2 (10:14→17:57)
--- NOTE | 2018-07-13 10:15 | INFECTIOUS DISEASE CONSULT REP ---
DATE: 07/13/2018 CONCLUSION: The patient is admitted to the hospital with what appears to be an acute pneumonia. The patient unfortunately is on immunosuppressive therapy and could have a wide variety of pulmonary infections. I think it is also possible the patient has an immunoglobulin deficiency as well. RECOMMENDATIONS: I agree with broad-spectrum antibiotic coverage. I have substituted cefepime for Zosyn because there is some evidence to show that when Zosyn and vancomycin are given together that there is an enhanced possibility of renal toxicity. Also it would be best to stop nitrofurantoin because it can cause pulmonary problems including fibrosis and the patient unfortunately has pulmonary problems, including pulmonary fibrosis. Also, I have added azithromycin. I have also ordered a QuantiFERON gold, histoplasma antigen and immunoglobulin levels. If patient does not improve soon, I think a bronchoscopy would be the best way to proceed and hopefully a transbronchial biopsy could be performed during the bronchoscopy PRESENT ILLNESS: For about the past 2 months, the patient has had a cough. It is rarely productive of green sputum. She does have episodes of sweating. She also is hoarse. The patient told me she has chronic lung problems and in the past 2 months they become exacerbated. PAST MEDICAL HISTORY/REVIEW OF SYSTEMS: Eyes and ears: Patient has decreased vision in the right eye. Her hearing is good. Neck: No stiffness. Respiratory: See present illness. GI: No nausea, vomiting, or diarrhea. : No dysuria or flank pain. Bones, joints, muscles: No swollen joints or muscle aches. Neurologic: No seizures. No recent loss of motor or sensory function. GI: No nausea, vomiting, or diarrhea. : No dysuria or flank pain. Endocrine: The patient is diabetic and she also has hypothyroidism. Integument: No rash. MEDICAL DISEASES: Positive for sarcoidosis, which is being treated with steroids, diabetes mellitus, hypertension, and coronary artery disease. PREVIOUS HOSPITALIZATIONS AND OPERATIONS: Patient has had bladder surgeries. She has also had coronary artery disease and had stents placed twice in the arteries. She had a fracture of her 4th finger and a pin is in the finger. The patient has also had a tonsillectomy. LABORATORY AND X-RAY: The patient's CBC shows a white count of 10,830, hemoglobin 11.6, and platelet count 299,000. Creatinine 0.5. GFR is greater than 60. Liver function studies are normal. Urinalysis showed white cells, but no bacteria. Blood and urine cultures are sterile thus far. CT scan of the chest shows fibrosis, bronchiectasis and bronchopneumonia. MEDICAL DISEASES: Positive for sarcoidosis, diabetes mellitus, hypertension, coronary artery disease. INFECTIOUS DISEASE HISTORY: Positive for recurrent pneumonia, bronchitis, urinary tract infection, sinusitis and the patient told me she was once diagnosed as having fungus in her lungs. FAMILY HISTORY: Positive for diabetes mellitus, hypertension, myocardial infarction, stroke, and cancer. SOCIAL HISTORY: [place] She is . She lives alone. She does not smoke cigarettes, drink alcoholic beverages or abuse drugs. She does not have any pets at home. She does not have a job. ALLERGIES: The patient has allergies to sulfa manifested by a rash, Levaquin and nitrofurantoin. HOME MEDICATIONS: Xanax, amitriptyline, Lipitor, fluticasone, Neurontin, latanoprost eyedrops, Synthroid, Victoza, metformin, metoprolol, nitrofurantoin, nitroglycerin, prednisone, Imitrex, Spiriva, Topamax, and Effexor. HEIGHT/WEIGHT: Patient is 5 feet 1 inch tall, weighs 146 pounds. PHYSICAL EXAMINATION: Vitals: Temperature is 98.2 degrees, pulse 68, respirations 14, blood pressure 137/74. General: This is an ill-appearing middle-aged female. She coughed during the examination, but she was unable to bring up any sputum. Head/eyes/ears/nose/throat: She can hear my spoken words and see near objects. She does not have any white coating on her tongue. Neck: No pain with movement of the neck. Lungs: There were bilateral expiratory wheezes and some rhonchi. Cardiovascular: Heart rate is regular. Abdomen: Soft and nontender. Integument: No rash. Neurologic: The patient is awake. She can move her extremities. There is no tremor. Her sensation is intact to touch. Her memory as regarding her medical history is good. Thank you for the consult. cc: MD ALBANIA Choudhury
--- NOTE | 2018-07-13 15:29 | PROGRESS NOTE ---
DATE: 07/13/2018 SUBJECTIVE: Patient resting in bed not in any obvious distress. OBJECTIVE: Vital signs: Temperature 98.4 degrees, pulse is 89, respiratory rate 16, blood pressure is 144/82, oxygen saturation is 100%. HEENT: Atraumatic, normocephalic. Cardiovascular: S1, S2. Respiratory: Has evidence of good entry bilaterally. Abdomen: Soft, nontender, no masses felt. Extremities: No evidence of edema. Central nervous system: No obvious focal deficit noted. LABS: WBC is 10.83, hematocrit is 35.8. ASSESSMENT AND PLAN: 1. Bilateral pneumonia continue antibiotics, ID following. 2. History of sarcoidosis aware. 3. Diabetes mellitus. Continue blood sugar monitor as well as sliding scale insulin. 4. Hypothyroidism. Continue levothyroxine. 5. Deep vein thrombosis prophylaxis Lovenox. 6. Gastrointestinal prophylaxis PPI. cc: Jose Ott MD MTDD
--- NOTE | 2018-07-13 18:42 | CONSULTATION ---
DATE OF CONSULTATION: 07/13/2018 CHIEF COMPLAINT: Coughing for a month. HISTORY OF PRESENT ILLNESS: This is a 58-year-old, female with a complaint of a productive cough that has worsened over the past month. She also has a past history of asthma and sarcoidosis. Recent chest CT scan reveals mild pulmonary fibrosis, bronchiectasis, and bronchial pneumonia. The possibility of aspiration and/or granulomatous disease as a cause of bronchiectasis is suggested. PAST MEDICAL HISTORY: Sarcoidosis, asthma, depression, diabetes type 2, hyperlipidemia, kidney stones, hypothyroidism, and neuropathy. PAST SURGICAL HISTORY: Hysterectomy, tonsillectomy, and bladder repair. FAMILY HISTORY: Noncontributory. SOCIAL HISTORY: Lives alone. Denies alcohol, tobacco, or illicit drug use. ALLERGIES: Macrodantin, sulfa drugs, and Levaquin. HOME MEDICATIONS: See reconciliation list. LABORATORY DATA: White blood cells 10.83, red blood cells 3.97, hemoglobin 11.6, hematocrit 35.8, lymphocytes 10, band neutrophils 2, segmented neutrophils 80. Sodium 138, potassium 4.2, chloride 106, carbon dioxide 22, BUN 10, creatinine 0.5 mL. Calcium 8.6. AST 17, ALT 27. Total protein 6.2. DIAGNOSTIC DATA: A chest CT scan as mentioned in the HPI. His chest x-ray on 07/10/2018 impression: Worsening left upper lobe and lower lobe pneumonia. PHYSICAL EXAMINATION: General: This is a 58-year-old, female, resting well in bed in no acute distress at the present time. Vital Signs: Temperature 97.9 degrees, pulse rate 74, respiratory rate 16, blood pressure 149/83, O2 saturations 96 on room air. HEENT: Head is normocephalic, atraumatic. Pupils equal, round, and reactive to light and accommodation. Neck: Supple. Trachea is midline. Respiratory: Nonlabored. Diminished breath sounds. Wheezing noted in the posterior lower lung masterson. Coughing noted, nonproductive at present time. Heart: Regular rate and rhythm. No gallops, murmurs, or rubs. Abdomen: Soft, nontender, nondistended. Bowel sounds are present x4 quadrants. Extremities: Without clubbing, cyanosis, or edema. ASSESSMENT AND PLAN: 1. Bronchial pneumonia. Asthma. Continue bronchodilators and antibiotics and IV steroids as prescribed. 2. Sepsis. Probable sepsis, awaiting cultures. 3. Diabetes mellitus type 2. Continue pattern finger stick blood sugar and sliding scale insulin. 4. Sarcoidosis, aware. 5. Hypothyroidism- Continue Synthroid 50 mcg p.o. daily. 7. Continue DVT and GI prophylaxis. Thank you for the courtesy of this consultation. Dictated by ERIC Aguilar for Keli Lema MD cc: ERIC Aguilar MD [facility]
[2018-07-13] MEDS: XALATAN 0.005% OPH SOLN BOTH EYES SCH (21:32)
[2018-07-13] MEDS: TOPAMAX PO SCH (21:33)
[2018-07-13] MEDS: ELAVIL PO SCH (21:33)
[2018-07-13] MEDS: LIPITOR PO SCH (21:34)
[2018-07-14] MEDS: MAXIPIME 2 GM in NS 100 ML IV SCH ×3 (01:17→17:05)
[2018-07-14] MEDS: VANCOMYCIN 1 GM/NS 1 GM/250 ML IVPB IV SCH ×2 (01:25→14:16)
[2018-07-14] MEDS: DUONEB (A & A) INH SCH ×6 (03:19→23:15)
[2018-07-14] MEDS: SOLU-MEDROL IV SCH ×3 (03:39→19:59)
[2018-07-14] MEDS: HUMULIN R SUBQ SCH ×4 (06:19→22:01)
[2018-07-14] MEDS: PRILOSEC PO SCH (06:19)
[2018-07-14] MEDS: ADVAIR 500/50 DISKUS INH SCH ×2 (08:23→19:40)
[2018-07-14] MEDS: SPIRIVA INH SCH (08:23)
[2018-07-14] MEDS: ALPHAGAN P 0.15% OPHTH SOLN BOTH EYES SCH ×2 (09:16→20:03)
[2018-07-14] MEDS: SYNTHROID PO SCH (09:17)
[2018-07-14] MEDS: VICTOZA SUBQ SCH (09:17)
[2018-07-14] MEDS: NEURONTIN PO SCH ×3 (09:17→20:02)
[2018-07-14] MEDS: LOVENOX SUBQ SCH (09:17)
[2018-07-14] MEDS: ZITHROMAX PO SCH (09:17)
[2018-07-14] MEDS: EFFEXOR PO SCH (09:17)
[2018-07-14] MEDS: TOPROL XL PO SCH (09:18)
[2018-07-14] MEDS: ASPIRIN PO SCH (09:18)
--- NOTE | 2018-07-14 17:18 | PROGRESS NOTE ---
DATE: 07/14/2018 SUBJECTIVE: The patient is resting in bed. No new complaints today. OBJECTIVE: Vital signs: Temperature is 97.5 degrees, pulse 77, respiratory rate 21, blood pressure is 136/88, oxygen saturation is 100%. HEENT: Atraumatic, normocephalic. Cardiovascular: S1, S2. Respiratory: Has occasional rhonchi in the lung masters[place]. Abdomen: Soft, nontender. No masses. Extremities: No evidence of edema. Central nervous system: No obvious focal deficits noted. LABS: WBC is 10.83, hematocrit 35.8, with a platelet count of 299,000. ASSESSMENT AND PLAN: 1. Bilateral pneumonia. Continue antibiotics as recommended by ID. 2. History of sarcoid. Aware. 3. Diabetes mellitus. Continue blood sugar monitoring as well as sliding scale insulin. 4. Hypothyroidism. Continue levothyroxine. 5. Deep vein thrombosis prophylaxis. Lovenox. 6. Gastrointestinal prophylaxis. PPI. cc: oJse Ott MD
--- NOTE | 2018-07-14 17:50 | INFECTIOUS DISEASE PROGRESS NO ---
DATE: 07/14/2018 PRESENT ILLNESS: Ms. Ribeiro has an acute pneumonia as well as an immunoglobulin deficiency. MEDICATIONS: He is on day 1 of Zithromax 500 mg by mouth daily and cefepime 2 g IV every 8 hours. She is also receiving IV vancomycin per pharmacy dosing. There are also high- dose steroids on board. PHYSICAL EXAMINATION: Vital Signs: Temperature is 97.5 degrees, pulse rate 77, respiratory rate 21, blood pressure 136/88, O2 saturation is 100%. General: This is a chronically ill-appearing, middle-aged female. She is lying in bed, currently in no acute distress. HEENT: Atraumatic, normocephalic. She does have some flushing noted to her cheeks. Conjunctiva are pink. Oral mucous membranes are pink and moist. Neck: Supple. Trachea is midline. Cardiovascular: Heart rate is regular. Respiratory: Lung sounds have coarse wheezes noted bilaterally, diminished in the bases. Abdomen: Soft, round and nontender. Bowel sounds are active. Neurologic: She is awake, alert, and oriented. LABORATORY AND X-RAY: None available today. ASSESSMENT AND PLAN: Ms. Ribeiro is being treated for pneumonia with vancomycin, cefepime, and Zithromax. We will continue these at this time. Today, she states she is feeling a little better and her cough and sputum have decreased. 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 I have talked to her about this and about the fact that we will need to check her in another 6 to 8 weeks to see if this is a chronic or for her, or a one time issue. She stated understanding. These plans have been discussed with and recommended by Dr. Duque. COMORBIDITIES: For Ms. Ribeiro include sarcoidosis with steroid use, diabetes mellitus, and coronary artery disease. Dictated by ERIC Martinez for Efren Duque MD cc: Efren Duque MD [facility]
[2018-07-14] MEDS ORDERED: GAMUNEX-C 10% IV ONE (18:00)
[2018-07-14] MEDS: ELAVIL PO SCH (20:01)
[2018-07-14] MEDS: XALATAN 0.005% OPH SOLN BOTH EYES SCH (20:01)
[2018-07-14] MEDS: LIPITOR PO SCH (20:02)
[2018-07-14] MEDS: TOPAMAX PO SCH (20:02)
[2018-07-15] MEDS: VANCOMYCIN 1 GM/NS 1 GM/250 ML IVPB IV SCH ×2 (00:23→13:53)
[2018-07-15] MEDS: MAXIPIME 2 GM in NS 100 ML IV SCH ×3 (00:23→16:37)
[2018-07-15] MEDS: DUONEB (A & A) INH SCH ×5 (03:15→20:20)
[2018-07-15] MEDS: SOLU-MEDROL IV SCH ×3 (06:13→23:05)
[2018-07-15] MEDS: HUMULIN R SUBQ SCH ×4 (06:13→20:19)
[2018-07-15] MEDS: PRILOSEC PO SCH (06:14)
[2018-07-15] MEDS: SPIRIVA INH SCH (07:50)
[2018-07-15] MEDS: ADVAIR 500/50 DISKUS INH SCH ×2 (07:50→20:20)
[2018-07-15 07:55] LABS: BASO# 0.13 X1000 (0.0-0.2); BASO% 1.1 % (0.0-0.8); HEMATOCRIT 38.1 % (37.0-47.0); HEMOGLOBIN 12.5 g/dL (12.0-16.0); IMM GRAN# 1.11 X1000 (0.0-0.04); IMM GRAN% 9.5 % (0.0-0.5); LYMPH% 12.8 % (20.5-51.1); MCH 29.5 PG (27-31); MCHC 32.8 g/dL (33-37); MCV 89.9 FL (81-99); MONO# 0.84 X1000 (0.11-0.59); MONO% 7.2 % (1.7-9.3); MPV 9.6 FL (7.4-10.4); NEUT# 8.15 X1000 (1.4-6.5); NEUT% 69.4 % (42.2-75.2); PLT 341 X1000 (130-400); RBC 4.24 XMIL (4.2-5.4); RDW 14.3 % (11.5-14.5); WBC 11.73 X1000 (4.8-10.8)
[2018-07-15 08:33] LABS: AGAP 7; ALB/GLOB RATIO 1.2; ALBUMIN 3.7 g/dL (3.5-5.0); ALKALINE PHOSPHATASE 71 U/L (32-104); BUN 24 mg/dL (8-22); CALCIUM 9.2 mg/dL (8.8-10.2); CHLORIDE 103 mmol/L (98-107); COSMO 286; CREATININE 0.6 mg/dL (0.5-0.9); ESTIMATED GFR > 60; GLUCOSE 214 mg/dL (70-104); GOT 15 U/L (10-30); GPT 29 U/L (10-36); POTASSIUM 5.9 mmol/L (3.5-5.1); SODIUM 138 mmol/L (136-145); TCO2 28 mmol/L (25-35); TOTAL BILIRUBIN 0.23 mg/dL (0.20-1.00); TOTAL PROTEIN 6.8 g/dL (6.3-8.3)
[2018-07-15 08:42] LABS: BANDS 2 % (0-1); LYMPHS 14 % (21-51); MONO 6 % (1-9); SEGS 76 % (42-75)
[2018-07-15] MEDS: SYNTHROID PO SCH (09:03)
[2018-07-15] MEDS: ASPIRIN PO SCH (09:03)
[2018-07-15] MEDS: NEURONTIN PO SCH ×3 (09:03→20:20)
[2018-07-15] MEDS: EFFEXOR PO SCH (09:03)
[2018-07-15] MEDS: LOVENOX SUBQ SCH (09:03)
[2018-07-15] MEDS: TOPROL XL PO SCH (09:03)
[2018-07-15] MEDS: ZITHROMAX PO SCH (09:04)
[2018-07-15] MEDS: ALPHAGAN P 0.15% OPHTH SOLN BOTH EYES SCH ×2 (09:10→20:18)
[2018-07-15] MEDS ORDERED: INSULIN PEN NEEDLES ONE (10:15)
[2018-07-15] MEDS: VICTOZA SUBQ SCH (10:23)
[2018-07-15] MEDS: MIRALAX PO PRN (10:23)
--- NOTE | 2018-07-15 16:22 | INFECTIOUS DISEASE PROGRESS NO ---
DATE: 07/15/2018 PRESENT ILLNESS: The patient has acute pneumonia and an immunoglobulin deficiency. MEDICATIONS: This is day 2 of treatment with the combination of azithromycin, cefepime and vancomycin. PHYSICAL EXAMINATION: Vital Signs: Temperature is 98 degrees, pulse 97, respirations 16, blood pressure 141/77. General: This is a chronically ill-appearing, middle-aged female. She is in no acute distress. Head/eyes/ears/nose/throat: She talks with a hoarse voice. She can hear my spoken words and see near objects. She does seem to have the beginnings of oral candidiasis. Lungs: Clear to auscultation. Cardiovascular: Regular heart rate. Abdomen: Soft and nontender. Neurologic: The patient is alert. She can move her extremities. There is no tremor. LAB AND X-RAY: There is not a new x-ray for today. Lab studies show a CBC with a white count of 11,730, hemoglobin 12.5, and platelet count 341,000. IgG is low at 548. Blood and urine cultures are negative thus far. Legionella and pneumococcal urinary antigens are negative. Creatinine is 0.6. GFR is greater than 60. ASSESSMENT AND PLAN: Patient has pneumonia. I plan to continue the current antibiotics, namely azithromycin, cefepime and vancomycin. There are still some studies that are pending. The patient does have an immunoglobulin deficiency. My plan would be in 6 to 8 weeks repeat her immunoglobulin levels and, if they are still low, then she may be a candidate for monthly IVIG. I have started the patient on mycostatin swish and swallow for her oral candidiasis. COMORBIDITIES: Comorbidities in this patient reveals she has sarcoidosis and takes steroids for the disease. She also is a diabetic and has coronary artery disease. cc: Efren Duque MD [facility]
--- NOTE | 2018-07-15 16:25 | INFECTIOUS DISEASE PROGRESS NO ---
DATE: 07/15/2018 ADDENDUM: On physical exam,the patient does have some white coating on her tongue. I believe she is starting to develop oral candidiasis. I am going ahead and order Mycostatin 5 mL swish and swallow q.i.d. cc: Efren Duque MD MTDD
[2018-07-15] MEDS: IMITREX PO PRN (16:35)
[2018-07-15] MEDS: MYCOSTATIN SUSP PO SCH ×2 (16:36→20:22)
--- NOTE | 2018-07-15 16:56 | PROGRESS NOTE ---
DATE: 07/15/2018 SUBJECTIVE: This patient started complaining of headache probably a migraine, I will put this patient on Imitrex which is a home medication. She has a history of sarcoidosis, she is on home O2, she has been on chronic steroid use, no new complaints today. OBJECTIVE: Vital Signs: Temperature 98 degrees, pulse 76, respiratory rate 16, blood pressure 107/88, oxygen saturation 99 on 2 L of nasal cannula. HEENT: Head normocephalic, no trauma. PERRLA. Neck: Supple. No JVD. No masses. Central trachea. Chest: Bilateral scattered rhonchi mostly at the bases. Abdomen: Soft, nontender, nondistended. No hepatosplenomegaly. Extremities: No edema, no clubbing, no cyanosis. Neurological: The patient is alert, she is oriented. She is following commands. LABORATORY: WBC 11.7, hemoglobin 12.5, hematocrit 38.1, platelets 341,000. Sodium 138, potassium 5.9, chloride 103, bicarbonate 28, BUN 24, creatinine 0.6, glucose 214, calcium 9.2, albumin 3.7. ASSESSMENT AND PLAN: 1. Bilateral pneumonia, continue with antibiotics as recommended by Infectious Disease Department, continue with oxygen supplementation as well. 2. History of sarcoidosis, aware. Continue with IV steroids but I will decrease the dose from 80 IV q.8 hours to 40 IV q.8 hours and I will start decreasing the dose slowly. 3. History of asthma, this patient is having wheezing, continue with same treatment. 4. Type 2 diabetes. Continue with pattern of blood sugar and sliding scale insulin. 5. Hypothyroidism. Continue with levothyroxine. 6. Deep vein thrombosis prophylaxis with Lovenox. 7. Gastrointestinal prophylaxis with PPI. cc: Edson Travis MD
[2018-07-15] MEDS: XALATAN 0.005% OPH SOLN BOTH EYES SCH (20:18)
[2018-07-15] MEDS: TOPAMAX PO SCH (20:20)
[2018-07-15] MEDS: ELAVIL PO SCH (20:20)
[2018-07-15] MEDS: LIPITOR PO SCH (20:20)
[2018-07-16] MEDS: DUONEB (A & A) INH SCH ×7 (00:05→23:40)
[2018-07-16] MEDS: MAXIPIME 2 GM in NS 100 ML IV SCH ×3 (01:02→17:38)
[2018-07-16] MEDS: VANCOMYCIN 1 GM/NS 1 GM/250 ML IVPB IV SCH (02:01)
[2018-07-16] MEDS ORDERED: NS 1,000 ML ONE (06:01)
[2018-07-16] MEDS: HUMULIN R SUBQ SCH ×4 (06:22→20:50)
[2018-07-16] MEDS: PRILOSEC PO SCH (06:22)
[2018-07-16] MEDS: SOLU-MEDROL IV SCH ×4 (06:22→22:44)
[2018-07-16] MEDS: IMITREX PO PRN (07:06)
--- NOTE | 2018-07-16 07:13 | Diag Imaging Result Doc PS360 ---
EXAM: CHEST-1 VIEW 07/16/2018 HISTORY: pneumonia TECHNIQUE: AP portable at 0629 COMMENT: The opacity in the left upper lobe and left lower lobe has diminished slightly since 07/10/2018. There is still perihilar opacity on the right as well. IMPRESSION: Improved pneumonia superimposed on pulmonary fibrosis. Electronically signed by Flavio Foster 07/16/2018 7:10 AM
[2018-07-16] MEDS: SPIRIVA INH SCH (07:35)
[2018-07-16] MEDS: ADVAIR 500/50 DISKUS INH SCH ×2 (07:36→19:25)
[2018-07-16 07:55] LABS: BASO# 0.11 X1000 (0.0-0.2); BASO% 0.8 % (0.0-0.8); EOS# 0.03 X1000 (0.0-0.7); EOS% 0.2 % (0.0-10.0); HEMOGLOBIN 12.6 g/dL (12.0-16.0); IMM GRAN# 0.92 X1000 (0.0-0.04); IMM GRAN% 6.8 % (0.0-0.5); LYMPH# 1.91 X1000 (1.2-3.4); LYMPH% 14.1 % (20.5-51.1); MCH 29.6 PG (27-31); MCHC 33.2 g/dL (33-37); MCV 89.4 FL (81-99); MONO# 1.09 X1000 (0.11-0.59); MPV 9.6 FL (7.4-10.4); NEUT# 9.49 X1000 (1.4-6.5); NEUT% 70.1 % (42.2-75.2); PLT 346 X1000 (130-400); RBC 4.25 XMIL (4.2-5.4); RDW 14.5 % (11.5-14.5); WBC 13.55 X1000 (4.8-10.8)
[2018-07-16 08:02] LABS: AGAP 9; ALBUMIN 3.4 g/dL (3.5-5.0); ALKALINE PHOSPHATASE 69 U/L (32-104); BUN 18 mg/dL (8-22); CALCIUM 8.5 mg/dL (8.8-10.2); CHLORIDE 104 mmol/L (98-107); COSMO 283; CREATININE 0.6 mg/dL (0.5-0.9); ESTIMATED GFR > 60; GLUCOSE 170 mg/dL (70-104); GOT 18 U/L (10-30); GPT 37 U/L (10-36); SODIUM 139 mmol/L (136-145); TCO2 26 mmol/L (25-35); TOTAL BILIRUBIN 0.22 mg/dL (0.20-1.00); TOTAL PROTEIN 6.8 g/dL (6.3-8.3)
[2018-07-16 08:26] LABS: BANDS 2 % (0-1); LYMPHS 18 % (21-51); MONO 8 % (1-9); SEGS 66 % (42-75)
[2018-07-16] MEDS: ZITHROMAX PO SCH (11:00)
[2018-07-16] MEDS: MYCOSTATIN SUSP PO SCH ×4 (11:01→20:12)
[2018-07-16] MEDS: SYNTHROID PO SCH (11:01)
[2018-07-16] MEDS: TOPROL XL PO SCH (11:01)
[2018-07-16] MEDS: NEURONTIN PO SCH ×3 (11:01→20:12)
[2018-07-16] MEDS: EFFEXOR PO SCH (11:03)
[2018-07-16] MEDS: ASPIRIN PO SCH (11:03)
[2018-07-16] MEDS: ALPHAGAN P 0.15% OPHTH SOLN BOTH EYES SCH ×2 (11:03→20:11)
[2018-07-16] MEDS: LOVENOX SUBQ SCH (11:03)
[2018-07-16] MEDS: VICTOZA SUBQ SCH (11:05)
[2018-07-16] MEDS: VANCOMYCIN 1.3 GM in NS 250 ML IV SCH (15:42)
[2018-07-16] MEDS: MIRALAX PO PRN (15:44)
--- NOTE | 2018-07-16 16:56 | PROGRESS NOTE ---
DATE: 07/16/2018 SUBJECTIVE: The patient seems to be feeling better today. X-ray showed improved pneumonia superimposed on pulmonary fibrosis. This patient is still wheezing and short of breath with bilateral rhonchi. OBJECTIVE: Vital Signs: Temperature 97.8 degrees, pulse 66, respiratory rate 16, blood pressure 128/70, oxygen saturation 97% on room air. HEENT: Head normocephalic, no trauma. PERRLA. Neck: Supple. No JVD. Central trachea. Chest: Bilateral rhonchi mostly at the bases with expiratory wheezing. Abdomen: Soft, nontender, nondistended. No hepatosplenomegaly. Extremities: No edema, no clubbing, no cyanosis. Neurological: The patient is alert and oriented x3. No focal deficits. LABORATORY: WBC 13.5, hemoglobin 12.6, hematocrit 38, platelets 346,000. Sodium 139, potassium 4, chloride 104, bicarbonate 26, BUN 18, creatinine 0.6, glucose 170, calcium 8.5, albumin 3.4. ASSESSMENT AND PLAN: 1. Bilateral pneumonia. Continue antibiotics as recommended by Infectious Disease Department. Continue with oxygen supplementation as well. 2. Acute on chronic hypoxemic respiratory failure, likely secondary to pneumonia and history of sarcoidosis. Continue with oxygen supplementation. 3. History of sarcoidosis. Aware. Continue with IV steroids which have been decreased from 80 IV q.8 h. to 40 IV q.8 h. I will continue with same management for now since she is still wheezing. 4. History of asthma. Continue with same management. 5. Type 2 diabetes. Continue with patterned blood sugar and sliding scale insulin. 6. Hypothyroidism. Continue with levothyroxine. 7. Deep vein thrombosis prophylaxis with levofloxacin. 8. Hypogammaglobulinemia status post IVIG. Infectious Disease department following this patient. 9. Physical deconditioning. Continue physical therapy. cc: Edson Travis MD
--- NOTE | 2018-07-16 19:23 | INFECTIOUS DISEASE PROGRESS NO ---
DATE: 07/16/2018 ADDENDUM - PROGRESS NOTE DONE EARLIER: The patient said she has vaginal pruritus she requested treatment. Gyne-Lotrimin has been ordered and it will start tonight. cc: Efren Duque MD MTDD
--- NOTE | 2018-07-16 19:29 | INFECTIOUS DISEASE PROGRESS NO ---
DATE: 07/16/2018 PRESENT ILLNESS: Ms. Ribeiro is being treated for pneumonia and an immunoglobulin deficiency with low IgG. There is also an oral candidiasis. MEDICATIONS: She is receiving Zithromax 500 mg by mouth daily, cefepime 2 g IV every 8 hours and vancomycin IV per pharmacy dosing. She is also receiving nystatin swish and swallow. Patient has received 1 dose of IVIG on this admission. PHYSICAL EXAMINATION: Vital Signs: Temperature is 97.8 degrees, pulse rate 66, respiratory rate 16, blood pressure 128/70, O2 saturations 97% on room air. General: This is a chronically ill- appearing, middle-aged female. She is lying in the bed currently in no acute distress. HEENT: Atraumatic, normocephalic. Oral mucous membranes are pink and moist with a mild white coating, which has improved. Conjunctivae are pink. Neck: Supple. Trachea is midline. Cardiovascular: Heart rate is regular. Respiratory: Lung sounds have coarse rhonchi and wheezes noted bilaterally. Abdomen: Soft, round and nontender. Bowel sounds are active. Neurologic: She is awake, alert and oriented and able to move around independently. LABORATORY AND X-RAY: Today her white count is 13.55, hemoglobin 12.6, platelet count 346,000, creatinine 0.6. Estimated GFR is greater than 60. Total bilirubin is 0.22, AST 18, ALT 37, alkaline phosphatase 69. Chest x-ray today shows improved pneumonia superimposed on pulmonary fibrosis. ASSESSMENT AND PLAN: Ms. Ribeiro is being treated for pneumonia using Zithromax, cefepime and vancomycin. She is feeling better, and the chest x-ray is improving, so we will continue her medications as ordered. There is a leukocytosis; however, the patient is receiving IV steroids. She also has oral candidiasis. We will continue the nystatin swish and swallow. Her immunoglobulin deficiency has been treated with 1 dose of IVIG. The plan will be to follow up with her in 6 to 8 weeks for another check of her immunoglobulins in the event that this is a chronic issue for her. The patient complained about vaginal pruritus and discharge. Gyne-Lotrimin has been ordered. These plans have been discussed with and recommended by Dr. Duque. COMORBIDITIES: For Ms. Ribeiro include sarcoidosis with chronic steroid use, diabetes mellitus and coronary artery disease. Dictated by ERIC Martinez for Efren Duque MD cc: Efren Duque MD [facility]
[2018-07-16] MEDS: XALATAN 0.005% OPH SOLN BOTH EYES SCH (20:11)
[2018-07-16] MEDS: ELAVIL PO SCH (20:12)
[2018-07-16] MEDS: LIPITOR PO SCH (20:12)
[2018-07-16] MEDS: TOPAMAX PO SCH (20:13)
[2018-07-16] MEDS: GYNE-LOTRIMIN VAGINAL CREAM VAG SCH (20:49)
[2018-07-17] MEDS: MAXIPIME 2 GM in NS 100 ML IV SCH ×3 (01:19→17:53)
[2018-07-17] MEDS: VANCOMYCIN 1.3 GM in NS 250 ML IV SCH ×2 (01:52→14:55)
[2018-07-17] MEDS: DUONEB (A & A) INH SCH ×5 (03:40→20:05)
[2018-07-17] MEDS: SOLU-MEDROL IV SCH ×3 (06:10→22:38)
[2018-07-17] MEDS: PRILOSEC PO SCH (06:10)
[2018-07-17] MEDS: HUMULIN R SUBQ SCH ×4 (06:12→22:36)
[2018-07-17] MEDS: SPIRIVA INH SCH (07:41)
[2018-07-17] MEDS: ADVAIR 500/50 DISKUS INH SCH ×2 (07:41→20:05)
[2018-07-17 07:51] LABS: BASO# 0.08 X1000 (0.0-0.2); BASO% 0.6 % (0.0-0.8); HEMATOCRIT 41.3 % (37.0-47.0); HEMOGLOBIN 13.6 g/dL (12.0-16.0); IMM GRAN# 0.69 X1000 (0.0-0.04); IMM GRAN% 5.4 % (0.0-0.5); LYMPH# 1.45 X1000 (1.2-3.4); LYMPH% 11.3 % (20.5-51.1); MCH 29.4 PG (27-31); MCHC 32.9 g/dL (33-37); MCV 89.4 FL (81-99); MONO# 0.77 X1000 (0.11-0.59); MPV 9.5 FL (7.4-10.4); NEUT# 9.88 X1000 (1.4-6.5); NEUT% 76.7 % (42.2-75.2); PLT 371 X1000 (130-400); RBC 4.62 XMIL (4.2-5.4); RDW 14.6 % (11.5-14.5); WBC 12.87 X1000 (4.8-10.8)
[2018-07-17 08:13] LABS: AGAP 10; ALB/GLOB RATIO 1.1; ALBUMIN 3.9 g/dL (3.5-5.0); ALKALINE PHOSPHATASE 74 U/L (32-104); BUN 21 mg/dL (8-22); CALCIUM 8.7 mg/dL (8.8-10.2); CHLORIDE 102 mmol/L (98-107); COSMO 286; CREATININE 0.6 mg/dL (0.5-0.9); ESTIMATED GFR > 60; GLUCOSE 172 mg/dL (70-104); GOT 17 U/L (10-30); GPT 41 U/L (10-36); POTASSIUM 4.4 mmol/L (3.5-5.1); SODIUM 140 mmol/L (136-145); TCO2 28 mmol/L (25-35); TOTAL BILIRUBIN 0.26 mg/dL (0.20-1.00); TOTAL PROTEIN 7.3 g/dL (6.3-8.3)
[2018-07-17 08:21] LABS: LYMPHS 11 % (21-51); MONO 5 % (1-9); NRBC 1 % (0-0); SEGS 81 % (42-75)
[2018-07-17] MEDS: ALPHAGAN P 0.15% OPHTH SOLN BOTH EYES SCH ×2 (09:46→22:38)
[2018-07-17] MEDS: VICTOZA SUBQ SCH (09:46)
[2018-07-17] MEDS: ASPIRIN PO SCH (09:47)
[2018-07-17] MEDS: MYCOSTATIN SUSP PO SCH ×4 (09:47→22:47)
[2018-07-17] MEDS: EFFEXOR PO SCH (09:47)
[2018-07-17] MEDS: TOPROL XL PO SCH (09:47)
[2018-07-17] MEDS: NEURONTIN PO SCH ×3 (09:47→22:37)
[2018-07-17] MEDS: ZITHROMAX PO SCH (09:47)
[2018-07-17] MEDS: LOVENOX SUBQ SCH (09:47)
[2018-07-17] MEDS: SYNTHROID PO SCH (10:06)
--- NOTE | 2018-07-17 15:57 | PROGRESS NOTE ---
DATE: 07/17/2018 SUBJECTIVE: The patient is feeling better today. X-ray yesterday showed improved pneumonia superimposed on pulmonary fibrosis. She is still wheezing and short of breath with bilateral rhonchi. Tomorrow hopefully I will decrease the dose of the steroids. OBJECTIVE: Vital Signs: Temperature 98.2 degrees, pulse 75, respiratory rate 16, blood pressure 114/64, oxygen saturation 96 on nasal cannula. HEENT: Head normocephalic. No trauma. PERRLA. Neck: Supple. No JVD. No masses. Central trachea. Chest: Bilateral rhonchi mostly at the bases with expiratory wheezing. Abdomen: Soft, nontender, nondistended. No hepatosplenomegaly. Extremities: No edema. No clubbing. No cyanosis. Neurological: The patient is alert and oriented x3. No focal deficits. LABORATORY: WBC 12.8, hemoglobin 13.6, hematocrit 41.3, platelets 371,000. Sodium 140, potassium 4.4, chloride 102, bicarbonate 28, BUN 21, creatinine 0.6, glucose 172, calcium 8.7. ASSESSMENT AND PLAN: 1. Bilateral pneumonia. Continue with antibiotics as recommended per Infectious Disease Department. Continue with oxygen supplementation as well. 2. Acute on chronic hypoxemic respiratory failure, likely secondary to pneumonia and history of sarcoidosis. Continue with oxygen supplementation and steroids. 3. History of sarcoidosis. Aware. Will continue with the same management. 4. History of asthma. Continue with the same treatment. 5. Type 2 diabetes. Continue pattern of blood sugar and sliding scale insulin. 6. Hypothyroidism. Continue with levothyroxine. 7. Deep vein thrombosis prophylaxis with Lovenox. 8. Hypogammaglobulinemia, status post IVIG treatment. Aware. 9. Physical deconditioning. Continue physical therapy. cc: Edson Travis MD
[2018-07-17] MEDS: IMITREX PO PRN (16:06)
[2018-07-17] MEDS: TOPAMAX PO SCH (22:37)
[2018-07-17] MEDS: LIPITOR PO SCH (22:38)
[2018-07-17] MEDS: GYNE-LOTRIMIN VAGINAL CREAM VAG SCH (22:38)
[2018-07-17] MEDS: ELAVIL PO SCH (22:38)
[2018-07-17] MEDS: XALATAN 0.005% OPH SOLN BOTH EYES SCH (22:39)
[2018-07-18] MEDS: DUONEB (A & A) INH SCH ×7 (00:05→23:52)
[2018-07-18] MEDS: VANCOMYCIN 1.3 GM in NS 250 ML IV SCH ×2 (02:25→16:16)
[2018-07-18] MEDS: MAXIPIME 2 GM in NS 100 ML IV SCH ×3 (02:25→20:52)
[2018-07-18] MEDS: SOLU-MEDROL IV SCH ×3 (05:58→21:52)
[2018-07-18] MEDS: PRILOSEC PO SCH (06:01)
[2018-07-18] MEDS: HUMULIN R SUBQ SCH ×4 (06:02→21:52)
[2018-07-18] MEDS: ADVAIR 500/50 DISKUS INH SCH ×2 (07:28→19:55)
[2018-07-18] MEDS: SPIRIVA INH SCH (07:28)
[2018-07-18] MEDS: LOVENOX SUBQ SCH (08:28)
[2018-07-18] MEDS: VICTOZA SUBQ SCH (08:28)
[2018-07-18] MEDS: FLONASE NAS SCH (08:29)
[2018-07-18] MEDS: MYCOSTATIN SUSP PO SCH ×4 (08:30→20:22)
[2018-07-18] MEDS: TOPROL XL PO SCH (08:30)
[2018-07-18] MEDS: ZITHROMAX PO SCH (08:30)
[2018-07-18] MEDS: ASPIRIN PO SCH (08:31)
[2018-07-18] MEDS: NEURONTIN PO SCH ×3 (08:31→20:21)
[2018-07-18] MEDS: EFFEXOR PO SCH (08:31)
[2018-07-18] MEDS: SYNTHROID PO SCH (08:32)
[2018-07-18] MEDS: ALPHAGAN P 0.15% OPHTH SOLN BOTH EYES SCH ×2 (08:33→20:22)
--- NOTE | 2018-07-18 16:12 | PROGRESS NOTE ---
DATE: 07/18/2018 SUBJECTIVE: This patient is feeling short of breath. She is still coughing and wheezing as well bilaterally. I will not make changes on her medications. I will wait for re-evaluation by Pulmonary Department. We will monitor this patient closely. OBJECTIVE: Vital Signs: Temperature 98.1 degrees, pulse 85, respiratory rate 18, blood pressure 123/64, oxygen saturation 94% on 2 L of nasal cannula. HEENT: Head normocephalic, no trauma. PERRLA. Neck: Supple. No JVD. No masses. Central trachea. Chest: Bilateral rhonchi mostly at the bases with expiratory wheezing, prolonged expiratory phase. Abdomen: Soft, nontender, nondistended. No hepatosplenomegaly. Extremities: No edema, no clubbing, no cyanosis. Neurological examination: The patient is alert and oriented x3. No focal deficits. LABORATORY: Glucose 276. ASSESSMENT AND PLAN: 1. Bilateral pneumonia. Continue with antibiotics as recommended per Infectious Disease Department. Continue with oxygen supplementation as well. 2. Acute on chronic hypoxemic respiratory failure likely secondary to pneumonia and history of sarcoidosis. Continue with oxygen supplementation and steroids. 3. History of sarcoidosis. Continue with same management. 4. History of asthma. Continue with same treatment. 5. Type 2 diabetes. Continue with sliding scale insulin and pattern of blood sugar. 6. Hypothyroidism. Continue with levothyroxine. 7. Deep vein thrombosis prophylaxis with Lovenox. 8. Hypogammaglobulinemia, status post IVIG treatment. Aware. 9. Physical deconditioning. Continue physical therapy. cc: Edson Travis MD
--- NOTE | 2018-07-18 17:06 | INFECTIOUS DISEASE PROGRESS NO ---
DATE: 07/18/2018 PRESENT ILLNESS: The patient has the following illnesses: 1. Pneumonia. 2. Immunoglobulin deficiency. 3. Oral candidiasis. 4. Vaginal candidiasis. 5. Today, the patient told me that she has a sore in the right naris. MEDICATIONS: The patient is on a combination of azithromycin and cefepime, which she has been taking now for five days. She also is receiving vancomycin, which is the ninth day of treatment. PHYSICAL EXAMINATION: Vital Signs: Temperature is 98.1, pulse 85, respirations 18, blood pressure 123/64. General: This is a chronically ill appearing, middle-aged female. She is in no acute distress currently. Head/eyes/ears/nose/throat: I did not see any white patches on her tongue. I looked into her right nostril and I did not see any bleeding or erythema. Lungs: There were some scattered wheezes. Cardiovascular: Heart rate is regular. Abdomen: Soft and nontender. Neurologic: The patient is alert. She can move her extremities. There is no tremor. LAB AND X-RAY: Chest x-ray shows improvement in the patient's pneumonia. There is no new radiographic study today. ASSESSMENT AND PLAN: Patient has pneumonia. I plan to continue azithromycin, cefepime, and vancomycin. She has an immunoglobulin deficiency and that has already been replenished with IVIG. She has oral candidiasis and I plan to continue with Nystatin swish and swallow. She complained today of a sore in the right nostril and I have ordered a culture to be taken from the nostril. Finally, the patient has vaginal candidiasis and Gyne-Lotrimin has been ordered for that. COMORBIDITIES: The patient has sarcoidosis and she stays on steroids chronically. She also is a diabetic and has coronary artery disease. cc: Efren Duque MD
--- NOTE | 2018-07-18 17:08 | INFECTIOUS DISEASE PROGRESS NO ---
DATE: 07/18/2018 ADDENDUM: On July 21, I have ordered for the morning a CBC, a BMP and a chest x-ray on the patient. cc: Efren Duque MD
[2018-07-18] MEDS: TOPAMAX PO SCH (20:21)
[2018-07-18] MEDS: ELAVIL PO SCH (20:21)
[2018-07-18] MEDS: LIPITOR PO SCH (20:21)
[2018-07-18] MEDS: GYNE-LOTRIMIN VAGINAL CREAM VAG SCH (20:22)
[2018-07-18] MEDS: XALATAN 0.005% OPH SOLN BOTH EYES SCH (20:24)
[2018-07-18] MEDS: MIRALAX PO PRN (21:56)
[2018-07-19] MEDS: MAXIPIME 2 GM in NS 100 ML IV SCH ×3 (03:44→22:53)
[2018-07-19] MEDS: DUONEB (A & A) INH SCH ×6 (03:45→23:45)
[2018-07-19] MEDS: VANCOMYCIN 1.3 GM in NS 250 ML IV SCH ×2 (04:48→17:00)
[2018-07-19] MEDS: SOLU-MEDROL IV SCH ×2 (06:12→13:41)
[2018-07-19] MEDS: HUMULIN R SUBQ SCH ×5 (06:12→22:03)
[2018-07-19] MEDS: PRILOSEC PO SCH (06:12)
[2018-07-19] MEDS: SPIRIVA INH SCH (07:42)
[2018-07-19] MEDS: ADVAIR 500/50 DISKUS INH SCH ×2 (07:42→20:28)
[2018-07-19 07:56] LABS: BASO# 0.04 X1000 (0.0-0.2); BASO% 0.2 % (0.0-0.8); HEMATOCRIT 41.5 % (37.0-47.0); HEMOGLOBIN 13.4 g/dL (12.0-16.0); IMM GRAN# 0.34 X1000 (0.0-0.04); IMM GRAN% 2.1 % (0.0-0.5); LYMPH# 1.24 X1000 (1.2-3.4); LYMPH% 7.7 % (20.5-51.1); MCH 29.3 PG (27-31); MCHC 32.3 g/dL (33-37); MCV 90.8 FL (81-99); MONO# 0.87 X1000 (0.11-0.59); MONO% 5.4 % (1.7-9.3); MPV 9.8 FL (7.4-10.4); NEUT# 13.59 X1000 (1.4-6.5); NEUT% 84.6 % (42.2-75.2); PLT 326 X1000 (130-400); RBC 4.57 XMIL (4.2-5.4); RDW 14.7 % (11.5-14.5); WBC 16.08 X1000 (4.8-10.8)
[2018-07-19 08:19] LABS: AGAP 10; BUN 21 mg/dL (8-22); CHLORIDE 105 mmol/L (98-107); COSMO 292; CREATININE 0.5 mg/dL (0.5-0.9); ESTIMATED GFR > 60; GLUCOSE 277 mg/dL (70-104); POTASSIUM 4.4 mmol/L (3.5-5.1); SODIUM 140 mmol/L (136-145); TCO2 25 mmol/L (25-35)
[2018-07-19] MEDS: TOPROL XL PO SCH (08:28)
[2018-07-19] MEDS: ZITHROMAX PO SCH (08:28)
[2018-07-19] MEDS: SYNTHROID PO SCH (08:28)
[2018-07-19] MEDS: LOVENOX SUBQ SCH (08:29)
[2018-07-19] MEDS: FLONASE NAS SCH (08:29)
[2018-07-19] MEDS: NEURONTIN PO SCH ×3 (08:29→22:03)
[2018-07-19] MEDS: ALPHAGAN P 0.15% OPHTH SOLN BOTH EYES SCH ×2 (08:29→22:07)
[2018-07-19] MEDS: EFFEXOR PO SCH (08:29)
[2018-07-19] MEDS: MYCOSTATIN SUSP PO SCH ×4 (08:29→22:03)
[2018-07-19] MEDS: ASPIRIN PO SCH (08:29)
[2018-07-19] MEDS: VICTOZA SUBQ SCH (08:30)
--- NOTE | 2018-07-19 09:53 | Diag Imaging Result Doc PS360 ---
CHEST-2 VIEWS - 07/19/2018 INDICATION: abnormal exam COMPARISON: 07/16/2018 FINDINGS: There has been significant improvement in the perihilar infiltrates bilaterally. Heart size is normal. No pneumothorax or pleural effusion. There is some residual strandy opacities or scarring in the midlungs left greater than right. IMPRESSION: Significant improvement from prior. Electronically signed by Gaurav Real 07/19/2018 9:51 AM
[2018-07-19] MEDS: PREDNISONE PO SCH (16:13)
--- NOTE | 2018-07-19 16:17 | PROGRESS NOTE ---
DATE: 07/19/2018 SUBJECTIVE: This patient seems to be doing better today. She is still coughing and having some shortness of breath, but the wheezing is much better. The dose of the steroids has been decreased, and switch from IV to p.o. White blood cell and blood sugar increased, likely secondary to steroids as well. OBJECTIVE: Vital Signs: Temperature 98 degrees, pulse 68, respiratory rate 15, blood pressure 140/61, oxygen saturation 96 on room air. HEENT: Head normocephalic. No trauma. PERRLA. Neck: Supple. No JVD. No masses. Central trachea. Chest: Bilateral rhonchi mostly at the bases with some scattered faint expiratory wheezing, prolonged expiratory phase. Abdomen: Soft, nontender, nondistended. No hepatosplenomegaly. Extremities: No edema, no clubbing, no cyanosis. Neurological examination: The patient is alert and oriented x3. No focal deficits. LABORATORY: WBC 16, hemoglobin 13.4, hematocrit 41.5, platelets 326. Sodium 140, potassium 4.4, chloride 105, bicarbonate 25. BUN 21, creatinine 0.5, glucose 277, calcium 9. ASSESSMENT AND PLAN: 1. Bilateral pneumonia. Continue with antibiotics as recommended per Infectious Disease Department. Continue with oxygen supplementation as well. 2. Acute on chronic hypoxemic respiratory failure likely secondary to pneumonia and history of sarcoidosis. Continue with oxygen supplementation and treatment. 3. History of sarcoidosis. Aware. 4. History of asthma. Continue with same management. 5. Type 2 diabetes. Continue with sliding scale insulin and pattern of blood sugar. Her blood sugar is going up due to steroids. 6. Hypothyroidism. Continue levothyroxine. 7. Deep vein thrombosis prophylaxis with Lovenox. 8. Hypogammaglobulinemia, status post IVIG treatment. Aware. 9. Physical deconditioning. Continue physical therapy. cc: Edson Travis MD
--- NOTE | 2018-07-19 20:16 | PULMONOLOGY PROGRESS NOTE ---
DATE: 07/19/2018 SUBJECTIVE: The patient is awake, alert, and conversant. She reports her breathing has improved. She reports her sputum production is diminished. OBJECTIVE: Vital Signs: The patient has been afebrile for the last 24 hours. BP 123/66, heart rate 95, respiratory rate 19, oxygen saturation 98% on nasal cannula. HEENT: Pupils are equal and reactive. Oropharynx is clear. Neck: Supple. Chest: Reveals prolonged expiratory phase with minimal wheeze. Occasional rhonchi bilaterally. Cardiac exam: S1-S2. Abdomen: Soft and without hepatosplenomegaly. Extremities: Are without edema. LABORATORIES: White blood count 16,000, hemoglobin 13.4, platelet count 326,000. Chest x-ray reveals significant decrease in bilateral infiltrates. IMPRESSION: A 58-year-old with pneumonia, sarcoidosis, hypoxemic respiratory failure. Clinically, she appears to be improving. RECOMMENDATIONS: 1. Transition patient to prednisone with anticipation of a 2 week taper. 2. Continue current antibiotic regimen. Dr. Duque has a plan for a followup chest x-ray on Saturday. 3. Wean oxygen as tolerated. cc: Ronnie Ball MD
[2018-07-19] MEDS: LIPITOR PO SCH (22:03)
[2018-07-19] MEDS: ELAVIL PO SCH (22:03)
[2018-07-19] MEDS: TOPAMAX PO SCH (22:03)
[2018-07-19] MEDS: GYNE-LOTRIMIN VAGINAL CREAM VAG SCH (22:07)
[2018-07-19] MEDS: XALATAN 0.005% OPH SOLN BOTH EYES SCH (22:07)
[2018-07-20] MEDS: DUONEB (A & A) INH SCH ×6 (03:27→23:10)
[2018-07-20] MEDS: MAXIPIME 2 GM in NS 100 ML IV SCH ×3 (04:49→21:17)
[2018-07-20] MEDS: VANCOMYCIN 1.3 GM in NS 250 ML IV SCH ×2 (04:52→16:00)
[2018-07-20] MEDS: PRILOSEC PO SCH (06:30)
[2018-07-20] MEDS: HUMULIN R SUBQ SCH ×4 (06:30→21:16)
[2018-07-20 07:41] LABS: BASO# 0.02 X1000 (0.0-0.2); BASO% 0.2 % (0.0-0.8); EOS# 0.02 X1000 (0.0-0.7); EOS% 0.2 % (0.0-10.0); HEMATOCRIT 38.1 % (37.0-47.0); HEMOGLOBIN 12.3 g/dL (12.0-16.0); IMM GRAN% 1.5 % (0.0-0.5); LYMPH# 1.65 X1000 (1.2-3.4); LYMPH% 12.4 % (20.5-51.1); MCH 29.4 PG (27-31); MCHC 32.3 g/dL (33-37); MCV 90.9 FL (81-99); MONO# 1.29 X1000 (0.11-0.59); MONO% 9.7 % (1.7-9.3); MPV 9.7 FL (7.4-10.4); NEUT# 10.09 X1000 (1.4-6.5); PLT 303 X1000 (130-400); RBC 4.19 XMIL (4.2-5.4); RDW 14.6 % (11.5-14.5); WBC 13.27 X1000 (4.8-10.8)
[2018-07-20] MEDS: ADVAIR 500/50 DISKUS INH SCH ×2 (07:50→19:15)
[2018-07-20] MEDS: SPIRIVA INH SCH (07:50)
[2018-07-20 08:10] LABS: AGAP 10; BUN 25 mg/dL (8-22); CALCIUM 8.8 mg/dL (8.8-10.2); CHLORIDE 103 mmol/L (98-107); COSMO 291; CREATININE 0.6 mg/dL (0.5-0.9); ESTIMATED GFR > 60; GLUCOSE 224 mg/dL (70-104); POTASSIUM 4.3 mmol/L (3.5-5.1); SODIUM 140 mmol/L (136-145); TCO2 27 mmol/L (25-35)
[2018-07-20] MEDS: ASPIRIN PO SCH (08:23)
[2018-07-20] MEDS: TOPROL XL PO SCH (08:23)
[2018-07-20] MEDS: SYNTHROID PO SCH (08:24)
[2018-07-20] MEDS: NEURONTIN PO SCH ×3 (08:26→21:15)
[2018-07-20] MEDS: PREDNISONE PO SCH (08:26)
[2018-07-20] MEDS: ZITHROMAX PO SCH (08:26)
[2018-07-20] MEDS: EFFEXOR PO SCH (08:26)
[2018-07-20] MEDS: MYCOSTATIN SUSP PO SCH ×4 (08:30→21:15)
[2018-07-20] MEDS: ALPHAGAN P 0.15% OPHTH SOLN BOTH EYES SCH ×2 (08:30→21:17)
[2018-07-20] MEDS: VICTOZA SUBQ SCH (08:32)
[2018-07-20] MEDS: LOVENOX SUBQ SCH (08:33)
[2018-07-20] MEDS: FLONASE NAS SCH (08:37)
[2018-07-20] MEDS ORDERED: XANAX PO PRN ×2 (10:21→10:33)
--- NOTE | 2018-07-20 10:38 | PROGRESS NOTE ---
DATE: 07/20/2018 SUBJECTIVE: This patient is feeling better, but she is still having wheezing, she is still short of breath. Pulmonary Department on board. No acute events overnight. OBJECTIVE: Vital Signs: Temperature 98.5 degrees, pulse 87, respiratory rate 14, blood pressure 123/79, oxygen saturation 100% on 2 L of nasal cannula. HEENT: Head normocephalic, no trauma. PERRLA. Neck: Supple. No JVD. No masses. Central trachea. Chest: Bilateral rhonchi mostly at the bases with wheezing bilaterally, prolonged expiratory phase. Abdomen: Soft, nontender, nondistended. No hepatosplenomegaly. Extremities: No edema. No clubbing. No cyanosis. Neurological: The patient is alert and oriented x3. No focal deficits. LABORATORY: WBC 13.2, hemoglobin 12.3, hematocrit 38.1, platelets 303,000. Sodium 140, potassium 4.3, chloride 103, bicarbonate 27, BUN 25, creatinine 0.6, glucose 224, calcium 8.8. ASSESSMENT AND PLAN: 1. Bilateral pneumonia, continue with antibiotics per Infectious Disease Department. Continue oxygen supplementation as well. 2. Acute on chronic hypoxemic respiratory failure likely secondary to pneumonia and history of sarcoidosis. Continue with oxygen supplementation and treatment. 3. History of sarcoidosis, aware. 4. History of asthma. Continue with same management. 5. Type 2 diabetes. Continue sliding scale insulin and pattern of blood sugar. Blood sugar has been up due to steroids, but is getting better. 6. Hypothyroidism. Continue levothyroxine. 7. Deep vein thrombosis prophylaxis with Lovenox. 8. Hypogammaglobulinemia, status post IVIG treatment, aware. 9. Physical deconditioning. Continue physical therapy. cc: Edson Travis MD
[2018-07-20] MEDS: MIRALAX PO SCH ×2 (11:07→21:15)
--- NOTE | 2018-07-20 20:53 | PULMONOLOGY PROGRESS NOTE ---
DATE: 07/20/2018 SUBJECTIVE: The patient is awake, alert, and conversant. She reports she had some wheezing earlier. She reports minimal sputum production. OBJECTIVE: Blood pressure 100/56, heart rate 71, respiratory rate 18, oxygen saturation 98% on nasal cannula.HEENT: Pupils are equal and reactive. Oropharynx is clear. Neck: Is supple. Chest: Reveals crackles in the bases. No definite wheezing. Occasional rhonchi. Cardiac: S1- S2. Abdomen: Is soft. Extremities: Without edema. LABORATORIES: White blood count 13.27, hemoglobin 12.3, platelet count 303,000. Sodium 140, potassium 4.3, chloride 103, bicarbonate 27, BUN 25, creatinine 0.6, glucose 224. No new x-ray data. IMPRESSION: 58-year-old with 1. Pneumonia. 2. Sarcoidosis. 3. Hypoxemic respiratory failure. RECOMMENDATIONS: 1. Continue current oral steroid dosing with taper over 2 weeks. 2. Antibiotics per Dr. Efren Duque. 3. Consider followup of immunoglobulin levels given reduction identified during this hospitalization. cc: Ronnie Ball MD
[2018-07-20] MEDS ORDERED: INSULIN PEN NEEDLES ONE (21:11)
[2018-07-20] MEDS: TOPAMAX PO SCH (21:15)
[2018-07-20] MEDS: ELAVIL PO SCH (21:15)
[2018-07-20] MEDS: LIPITOR PO SCH (21:16)
[2018-07-20] MEDS: BASAGLAR SUBQ SCH ×2 (21:16→21:18)
[2018-07-20] MEDS: XALATAN 0.005% OPH SOLN BOTH EYES SCH (21:17)
[2018-07-20] MEDS: GYNE-LOTRIMIN VAGINAL CREAM VAG SCH (21:17)
[2018-07-21] MEDS: MAXIPIME 2 GM in NS 100 ML IV SCH ×3 (03:11→22:48)
[2018-07-21] MEDS: DUONEB (A & A) INH SCH ×5 (03:45→23:40)
[2018-07-21] MEDS: VANCOMYCIN 1.3 GM in NS 250 ML IV SCH ×2 (04:09→17:16)
[2018-07-21] MEDS: HUMULIN R SUBQ SCH ×4 (06:31→22:59)
[2018-07-21] MEDS: PRILOSEC PO SCH (06:31)
[2018-07-21 08:04] LABS: BASO# 0.01 X1000 (0.0-0.2); BASO% 0.1 % (0.0-0.8); EOS# 0.09 X1000 (0.0-0.7); EOS% 0.9 % (0.0-10.0); HEMATOCRIT 37.2 % (37.0-47.0); HEMOGLOBIN 11.8 g/dL (12.0-16.0); IMM GRAN# 0.15 X1000 (0.0-0.04); IMM GRAN% 1.5 % (0.0-0.5); LYMPH# 1.43 X1000 (1.2-3.4); LYMPH% 14.4 % (20.5-51.1); MCH 29.2 PG (27-31); MCHC 31.7 g/dL (33-37); MCV 92.1 FL (81-99); MONO# 0.88 X1000 (0.11-0.59); MONO% 8.9 % (1.7-9.3); MPV 9.8 FL (7.4-10.4); NEUT# 7.34 X1000 (1.4-6.5); NEUT% 74.2 % (42.2-75.2); PLT 286 X1000 (130-400); RBC 4.04 XMIL (4.2-5.4); RDW 14.7 % (11.5-14.5)
[2018-07-21 08:26] LABS: AGAP 7; BUN 23 mg/dL (8-22); CALCIUM 9.2 mg/dL (8.8-10.2); CHLORIDE 104 mmol/L (98-107); COSMO 288; CREATININE 0.6 mg/dL (0.5-0.9); ESTIMATED GFR > 60; GLUCOSE 192 mg/dL (70-104); POTASSIUM 4.1 mmol/L (3.5-5.1); SODIUM 140 mmol/L (136-145); TCO2 29 mmol/L (25-35)
--- NOTE | 2018-07-21 08:39 | Diag Imaging Result Doc PS360 ---
EXAM: CHEST-2 VIEWS INDICATION: pneumonia TECHNIQUE: 2 views COMPARISON: 07/19/2018 FINDINGS: The small linear opacities in the perihilar regions, left greater than right, are stable, possibly representing residual scarring from the recent pneumonia. No new consolidation is identified. Cardiac silhouette is stable. IMPRESSION: Stable chest. Electronically signed by Steven Mccall 07/21/2018 8:36 AM
[2018-07-21] MEDS: ZITHROMAX PO SCH (09:41)
[2018-07-21] MEDS: EFFEXOR PO SCH (09:41)
[2018-07-21] MEDS: SYNTHROID PO SCH (09:41)
[2018-07-21] MEDS: PREDNISONE PO SCH (09:41)
[2018-07-21] MEDS: TOPROL XL PO SCH (09:41)
[2018-07-21] MEDS: LOVENOX SUBQ SCH (09:41)
[2018-07-21] MEDS: MYCOSTATIN SUSP PO SCH ×4 (09:41→22:51)
[2018-07-21] MEDS: ASPIRIN PO SCH (09:41)
[2018-07-21] MEDS: NEURONTIN PO SCH ×3 (09:41→22:51)
[2018-07-21] MEDS: MIRALAX PO SCH ×2 (09:42→22:50)
[2018-07-21] MEDS: VICTOZA SUBQ SCH (09:48)
[2018-07-21] MEDS: ALPHAGAN P 0.15% OPHTH SOLN BOTH EYES SCH ×2 (09:50→22:57)
[2018-07-21] MEDS: FLONASE NAS SCH (09:50)
--- NOTE | 2018-07-21 13:22 | PROGRESS NOTE ---
DATE: 07/21/2018 SUBJECTIVE: The patient is feeling better. She is still having mild. She is still having wheezing but compared with yesterday, is better. We have a positive culture that showed MRSA at the level of the nares. She has been placed on Zyvox. She reports minimal sputum production. OBJECTIVE: Vital Signs: Temperature 98.1 degrees, pulse 87, respiratory rate 17, blood pressure 116/62, oxygen saturation 98 on room air. HEENT: Head normocephalic. No trauma. HEENT: PERRLA. Neck: Supple. No JVD. No masses. Central trachea. Chest: Bilateral rhonchi mostly at the bases and some end-expiratory wheezing bilaterally scattered. Prolonged expiratory phase. Abdomen: Soft, nontender, nondistended. No hepatosplenomegaly. Extremities: No edema, no clubbing, no cyanosis. Neurological: The patient is alert and oriented x3. No focal deficits. LABORATORY DATA: WBC 9.9, hemoglobin 11.8, hematocrit 37.2, platelet 286,000. Sodium 140, potassium 4.1, chloride 104, bicarbonate 29, BUN 23, creatinine 0.6, glucose 192, calcium 9.2. ASSESSMENT AND PLAN: 1. Bilateral pneumonia. Continue with antibiotics per Infectious Disease Department. Continue oxygen supplementation as needed. 2. Methicillin resistant Staphylococcus aureus infection at the level of the nares. I have placed this patient on Zyvox pending Infectious Disease recommendations. 3. History of psychosis. Aware. 4. Acute on chronic hypoxemic respiratory failure likely secondary to pneumonia and history of sarcoidosis. Continue with the same management. 5. History of asthma, aware. 6. Type 2 diabetes, better controlled after decreasing the dose of the steroids. 7. Hypothyroidism. Continue with levothyroxine. 8. Deep vein thrombosis prophylaxis with Lovenox. 9. Hypogammaglobulinemia, status post IVIG treatment. Aware. 10. Physical deconditioning. Continue physical therapy. Overall, this patient is doing much better. I will wait for the final recommendations of Pulmonary Department and Infectious Disease Department. I have a new culture from the nares that showed MRSA. I have placed this patient on Zyvox, and like I said, I will wait for recommendations. Likely this patient can be discharged in the next 24 to 48 hours. cc: Edson Travis MD
--- NOTE | 2018-07-21 16:56 | INFECTIOUS DISEASE PROGRESS NO ---
DATE: 07/21/2018 SUBJECTIVE: Patient has the following the following diseases. 1. Pneumonia. 2. Immunoglobulin deficiency. The patient's immunoglobulin deficiency has already been treated with IVIG. 3. Oral candidiasis. 4. Vaginal candidiasis. 5. Methicillin-resistant Staph aureus infection in the patient's right naris. 6. Today the patient showed me that she has fever blisters on her lips which are due to herpes simplex virus. MEDICATIONS: The patient is on her 8th day of treatment with azithromycin, cefepime, and vancomycin. The patient also is taking Gyne-Lotrimin and nystatin swish and swallow. Today I have also started the patient on Valtrex for her fever blisters on her lips. PHYSICAL EXAMINATION: Vital Signs: Temperature is 98.1 degrees, pulse 87, respirations 17, blood pressure 116/62. General: This is an ill-appearing, middle-aged female. She is in no acute distress. Head, eyes, ears, nose, throat: She can hear my spoken words and see near objects. She does not have any white patches on her tongue. On her lips she has some crusted areas, some of which were initially small vesicles. Neck: No pain with movement of her head. Lungs: There were some scattered wheezes on the right side. The left side was clear. Cardiovascular: Heart rate is regular. Abdomen: Soft and nontender. Neurologic: The patient is alert. She can move her extremities. There is no tremor. LAB AND X-RAY: Chest x-ray shows bilateral perihilar opacities. The CBC for today shows a white count of 9,900, hemoglobin 11.8, and platelet count 286,000. Creatinine is 0.6. GFR is greater than 60. Chest x-ray shows bilateral perihilar opacities. ASSESSMENT AND PLAN: For the patient's pneumonia, I plan to continue azithromycin, cefepime, and vancomycin. For her immunoglobulin deficiency, as mentioned above, it has already been replenished with IVIG. For her oral candidiasis, the patient is receiving nystatin swish and swallow. For a sore right nostril due to methicillin-resistant Staphylococcus aureus which was isolated from the naris, I ordered mupirocin cream to be put in each nostril every 12 hours. The patient also has vaginal candidiasis and for this she is taking Gyne-Lotrimin. For the patient's fever blisters on her lips Valtrex has been started. COMORBIDITIES: The patient has sarcoidosis and she stays on steroids chronically. She also is a diabetic and she has coronary artery disease. cc: Efren Duque MD [facility]
[2018-07-21] MEDS: BACTROBAN CREAM TOP SCH (17:22)
[2018-07-21] MEDS: ADVAIR 500/50 DISKUS INH SCH (19:35)
[2018-07-21] MEDS: TOPAMAX PO SCH (22:50)
[2018-07-21] MEDS: ELAVIL PO SCH (22:50)
[2018-07-21] MEDS: LIPITOR PO SCH (22:50)
[2018-07-21] MEDS: GYNE-LOTRIMIN VAGINAL CREAM VAG SCH (22:57)
[2018-07-21] MEDS: XALATAN 0.005% OPH SOLN BOTH EYES SCH (22:59)
[2018-07-21] MEDS: BASAGLAR SUBQ SCH (23:07)
[2018-07-21] MEDS: VALTREX PO SCH (23:07)
[2018-07-22] MEDS: DUONEB (A & A) INH SCH ×6 (03:46→23:42)
[2018-07-22] MEDS: VANCOMYCIN 1.3 GM in NS 250 ML IV SCH ×2 (04:15→16:40)
[2018-07-22] MEDS: ADVAIR 500/50 DISKUS INH SCH ×3 (06:29→19:40)
[2018-07-22] MEDS: SPIRIVA INH SCH ×2 (06:30→08:10)
[2018-07-22 07:16] LABS: BASO# 0.03 X1000 (0.0-0.2); BASO% 0.3 % (0.0-0.8); EOS# 0.08 X1000 (0.0-0.7); EOS% 0.7 % (0.0-10.0); HEMATOCRIT 39.9 % (37.0-47.0); HEMOGLOBIN 12.7 g/dL (12.0-16.0); IMM GRAN# 0.23 X1000 (0.0-0.04); LYMPH# 1.65 X1000 (1.2-3.4); LYMPH% 14.1 % (20.5-51.1); MCH 29.2 PG (27-31); MCHC 31.8 g/dL (33-37); MCV 91.7 FL (81-99); MONO# 1.15 X1000 (0.11-0.59); MONO% 9.8 % (1.7-9.3); MPV 9.6 FL (7.4-10.4); NEUT# 8.56 X1000 (1.4-6.5); NEUT% 73.1 % (42.2-75.2); PLT 295 X1000 (130-400); RBC 4.35 XMIL (4.2-5.4); RDW 14.8 % (11.5-14.5)
[2018-07-22 07:43] LABS: AGAP 1; BUN 24 mg/dL (8-22); CALCIUM 8.8 mg/dL (8.8-10.2); CHLORIDE 104 mmol/L (98-107); COSMO 292; CREATININE 0.6 mg/dL (0.5-0.9); ESTIMATED GFR > 60; GLUCOSE 188 mg/dL (70-104); POTASSIUM 4.7 mmol/L (3.5-5.1); SODIUM 142 mmol/L (136-145); TCO2 37 mmol/L (25-35)
[2018-07-22] MEDS: PRILOSEC PO SCH (07:57)
[2018-07-22] MEDS: HUMULIN R SUBQ SCH ×4 (07:58→20:57)
[2018-07-22] MEDS: NEURONTIN PO SCH ×3 (09:34→21:00)
[2018-07-22] MEDS: ZITHROMAX PO SCH (09:35)
[2018-07-22] MEDS: MYCOSTATIN SUSP PO SCH ×4 (09:35→20:54)
[2018-07-22] MEDS: TOPROL XL PO SCH (09:35)
[2018-07-22] MEDS: SYNTHROID PO SCH (09:36)
[2018-07-22] MEDS: EFFEXOR PO SCH (09:36)
[2018-07-22] MEDS: LOVENOX SUBQ SCH (09:36)
[2018-07-22] MEDS: ASPIRIN PO SCH (09:36)
[2018-07-22] MEDS: VALTREX PO SCH ×2 (09:36→20:54)
[2018-07-22] MEDS: BACTROBAN CREAM TOP SCH ×3 (09:37→16:40)
[2018-07-22] MEDS: ALPHAGAN P 0.15% OPHTH SOLN BOTH EYES SCH ×2 (09:37→20:55)
[2018-07-22] MEDS: FLONASE NAS SCH (09:38)
[2018-07-22] MEDS: PREDNISONE PO SCH (09:38)
[2018-07-22] MEDS: MIRALAX PO SCH ×2 (09:38→20:56)
[2018-07-22] MEDS: VICTOZA SUBQ SCH (09:43)
[2018-07-22] MEDS: MUCINEX PO SCH ×2 (12:18→20:54)
[2018-07-22] MEDS: MAXIPIME 2 GM in NS 100 ML IV SCH ×3 (14:53→22:35)
--- NOTE | 2018-07-22 16:32 | PROGRESS NOTE ---
DATE: 07/22/2018 SUBJECTIVE: Ms. Ribeiro was feeling a little better. Breathing seemed to be doing better, so she is encouraged. OBJECTIVE: Vital signs: Temperature 98, remains afebrile. Pulse 80, respirations 18, blood pressure 101/60. Eyes: Pupils are equal and round. Lungs: Clear in all lung [place]. Cardiovascular exam: Regular rhythm and rate without murmur or S3. Blood sugar 358, 183, and 208. ASSESSMENT AND PLAN: 1. Patient treated for pneumonia. Going to continue the azithromycin, cefepime, and vancomycin. She has immunoglobulin deficiency and has already received IV immunoglobulin. We are giving her Nystatin for her oral candidiasis. She has a sore right nostril due to methicillin- resistant Staphylococcus aureus, was isolated from the naris and so she is getting some mupirocin cream to put in each nostril q.12 hours. Also has vaginal Candidiasis so getting Gyne-Lotrimin. For fever blisters, she is getting Valtrex. 2. History of psychosis. Aware. 3. [id number] respiratory failure secondary to pneumonia, history of sarcoidosis. Continue same management. 4. History of asthma. 5. History of diabetes mellitus type 2. Follow her sugars. Pattern sugar, sliding scale. 6. Hypothyroidism. 7. Continue deep venous thrombosis prophylaxis. 8. Hypogammaglobinemia. Received IVIG. 9. Physical deconditioning. Continue physical therapy. REVIEW OF HER ORDERS: She is on Lipitor 40 mg a day, clotrimazole vaginal cream daily, insulin glargine 10 units subcutaneously at bedtime, Topamax 50 mg at bedtime, albuterol ipratropium 3 mL inhalation q.4 hours, Xanax 1 mg p.o. daily, Elavil 100 mg p.o. at bedtime, aspirin 81 mg a day, azithromycin 500 mg a day, brimonidine eyedrops 0.15% to both eyes twice a day, Lovenox 40 mg subcutaneously q.24 hours for DVT prophylaxis, fluticasone nasal spray daily, fluticasone salmeterol inhalation b.i.d. 1 puff, Neurontin 800 mg t.i.d., guaifenesin ER 600 mg b.i.d., and then latanoprost eyedrops 0.005% both eyes at bedtime, Synthroid 50 mcg a day, Victoza 1.8 mg subcutaneously daily, and her cefepime 2 g IV q.8 hours, metoprolol 25 mg daily extended-release, mupirocin cream to her nostrils twice a day, nitroglycerin sublingual p.r.n., Prilosec 40 mg a day, MiraLAX 17 g b.i.d., prednisone 20 mg a day, Imitrex 100 mg p.o. daily, tiotropium bromide 1 puff daily, Valtrex 100 mg p.o. twice a day, vancomycin 1.3 g IV q.12 hours, and Effexor 75 mg a day. cc: Nelson Kirk MD
[2018-07-22] MEDS: TOPAMAX PO SCH (20:53)
[2018-07-22] MEDS: ELAVIL PO SCH (20:53)
[2018-07-22] MEDS: LIPITOR PO SCH (20:54)
[2018-07-22] MEDS: XALATAN 0.005% OPH SOLN BOTH EYES SCH (20:55)
[2018-07-22] MEDS: GYNE-LOTRIMIN VAGINAL CREAM VAG SCH (20:55)
[2018-07-22] MEDS: BASAGLAR SUBQ SCH (21:03)
[2018-07-23] MEDS: DUONEB (A & A) INH SCH ×6 (03:37→23:20)
[2018-07-23] MEDS: VANCOMYCIN 1.3 GM in NS 250 ML IV SCH ×2 (04:33→18:44)
[2018-07-23] MEDS: HUMULIN R SUBQ SCH ×4 (06:17→20:13)
[2018-07-23] MEDS: PRILOSEC PO SCH (06:49)
[2018-07-23] MEDS: SPIRIVA INH SCH (07:58)
[2018-07-23] MEDS: ADVAIR 500/50 DISKUS INH SCH ×2 (08:02→19:43)
[2018-07-23] MEDS: MAXIPIME 2 GM in NS 100 ML IV SCH ×2 (10:15→17:44)
[2018-07-23] MEDS: TOPROL XL PO SCH (10:16)
[2018-07-23] MEDS: LOVENOX SUBQ SCH (10:16)
[2018-07-23] MEDS: PREDNISONE PO SCH (10:16)
[2018-07-23] MEDS: MUCINEX PO SCH ×2 (10:16→20:12)
[2018-07-23] MEDS: NEURONTIN PO SCH ×3 (10:16→20:12)
[2018-07-23] MEDS: VALTREX PO SCH ×2 (10:16→20:16)
[2018-07-23] MEDS: MYCOSTATIN SUSP PO SCH ×4 (10:16→20:12)
[2018-07-23] MEDS: ZITHROMAX PO SCH (10:17)
[2018-07-23] MEDS: EFFEXOR PO SCH (10:17)
[2018-07-23] MEDS: SYNTHROID PO SCH (10:17)
[2018-07-23] MEDS: ASPIRIN PO SCH (10:17)
[2018-07-23] MEDS: ALPHAGAN P 0.15% OPHTH SOLN BOTH EYES SCH ×2 (10:18→21:08)
[2018-07-23] MEDS: BACTROBAN CREAM TOP SCH ×3 (10:18→17:46)
[2018-07-23] MEDS: MIRALAX PO SCH ×2 (10:18→20:11)
[2018-07-23] MEDS: FLONASE NAS SCH (10:18)
[2018-07-23] MEDS: VICTOZA SUBQ SCH (10:19)
[2018-07-23] MEDS: IMITREX PO PRN (12:02)
--- NOTE | 2018-07-23 16:34 | PROGRESS NOTE ---
DATE: 07/23/2018 SUBJECTIVE: She is feeling better. She is coughing quite a bit still, but breathing is much easier. She has remained afebrile. OBJECTIVE: Vital signs: Temperature 97.6 degrees, pulse 73, respirations 16, blood pressure 103/50. HEENT: Pupils are equal and round. Lungs: Clear in all lung [place]. Cardiovascular: Regular rhythm and rate without murmur or S3. LABS: Blood sugar 208, 200, 305. ASSESSMENT AND PLAN: 1. Patient treated for pneumonia. Continue azithromycin, cefepime, and vancomycin. Her immunoglobulin deficiency, we are aware. She has recently received IV immunoglobulin. She is on nystatin for oral candidiasis. She has sore on right nostril and cultured methicillin- resistant Staphylococcus aureus, so getting intranasal topical mupirocin and doing better. 2. History of psychosis. Aware. 3. Acute on chronic respiratory failure secondary to pneumonia and she has a history of sarcoidosis. Continue the same management. 4. History of asthma. 5. History of diabetes mellitus type 2. 6. Hypothyroidism. 7. History of deep venous thrombosis. We are giving her deep venous thrombosis prophylaxis. 8. Hypogammaglobulinemia. Given her IVIG. Continue physical therapy. Have discussions about possibly going home tomorrow. cc: Nelson Kirk MD
--- NOTE | 2018-07-23 18:26 | INFECTIOUS DISEASE PROGRESS NO ---
DATE: 07/23/2018 PRESENT ILLNESS: Ms. Ribeiro is being treated for pneumonia, oral candidiasis, vaginal candidiasis, methicillin-resistant Staph aureus in her nares, herpes simplex virus to her lips, and an immunoglobulin deficiency. MEDICATIONS: Today is day 10 of treatment with Zithromax, cefepime and vancomycin. She is also receiving vaginal Gyne Lotrimin, nystatin swish and swallow, mupirocin ointment to her nares, and Valtrex. She has also had 1 dose of IVIG on this admission. PHYSICAL EXAMINATION: Vital Signs: Temperature is 97.6, pulse rate 73, respiratory rate 16, blood pressure 103/50, O2 saturation 98% on room air. General: This is a chronically ill- appearing, middle-aged female. She is lying in bed, currently in no acute distress. HEENT: Atraumatic, normocephalic. Oral mucous membranes are pink and moist. She does have some white patches on her tongue, but this is improving. Also her areas on her lips are improving as well and less visible at this time. Conjunctivae are pink. Neck: Supple. Trachea is midline. Cardiovascular: Heart rate is regular. Respiratory: Lung sounds have inspiratory wheezes bilaterally. Abdomen: Soft, round and nontender. Bowel sounds are active. Neurologic: She is awake, alert, and oriented. Able to move around in the bed without difficulty. LABORATORY AND X-RAY: None available today. However, yesterday her white count was 11.7, hemoglobin 12.7, platelet count 295,000. Creatinine was 0.6. Estimated GFR greater than 60. No imaging reports. ASSESSMENT AND PLAN: Ms. Ribeiro is being treated for pneumonia. She states she is feeling better today. For now, we will continue her antibiotics as ordered. She also has oral candidiasis and vaginal candidiasis, so we will continue medications for those as well. She is also receiving mupirocin ointment to her nares, which we will continue, as well as the Valtrex for the HSV 1. These plans have been discussed with and recommended by Dr. Duque. COMORBIDITIES: For Ms. Ribeiro, include sarcoidosis with chronic steroid use, diabetes mellitus, and coronary artery disease. Dictated by ERIC Martinez for Efren Duque MD cc: Efren Duque MD [facility]
[2018-07-23] MEDS: BASAGLAR SUBQ SCH (20:12)
[2018-07-23] MEDS: TOPAMAX PO SCH (20:12)
[2018-07-23] MEDS: ELAVIL PO SCH (20:12)
[2018-07-23] MEDS: LIPITOR PO SCH (20:12)
[2018-07-23] MEDS: GYNE-LOTRIMIN VAGINAL CREAM VAG SCH (21:08)
[2018-07-23] MEDS: XALATAN 0.005% OPH SOLN BOTH EYES SCH (21:08)
[2018-07-24] MEDS: MAXIPIME 2 GM in NS 100 ML IV SCH ×2 (01:57→11:49)
[2018-07-24] MEDS: DUONEB (A & A) INH SCH ×4 (04:04→15:54)
[2018-07-24] MEDS: HUMULIN R SUBQ SCH ×3 (06:07→16:55)
[2018-07-24] MEDS: PRILOSEC PO SCH (06:07)
[2018-07-24] MEDS: VANCOMYCIN 1.3 GM in NS 250 ML IV SCH (06:07)
[2018-07-24] MEDS: ADVAIR 500/50 DISKUS INH SCH (07:23)
[2018-07-24] MEDS: SPIRIVA INH SCH (07:23)
[2018-07-24] MEDS: VALTREX PO SCH (09:11)
[2018-07-24] MEDS: PREDNISONE PO SCH (09:11)
[2018-07-24] MEDS: EFFEXOR PO SCH (09:11)
[2018-07-24] MEDS: NEURONTIN PO SCH ×2 (09:12→15:29)
[2018-07-24] MEDS: ASPIRIN PO SCH (09:12)
[2018-07-24] MEDS: ZITHROMAX PO SCH (09:12)
[2018-07-24] MEDS: MUCINEX PO SCH (09:12)
[2018-07-24] MEDS: MYCOSTATIN SUSP PO SCH ×3 (09:13→17:11)
[2018-07-24] MEDS: LOVENOX SUBQ SCH (09:13)
[2018-07-24] MEDS: MIRALAX PO SCH ×2 (09:13→09:24)
[2018-07-24] MEDS: TOPROL XL PO SCH (09:15)
[2018-07-24] MEDS: ALPHAGAN P 0.15% OPHTH SOLN BOTH EYES SCH (09:17)
[2018-07-24] MEDS: FLONASE NAS SCH (09:18)
[2018-07-24] MEDS: BACTROBAN CREAM TOP SCH ×3 (09:19→17:11)
[2018-07-24] MEDS: SYNTHROID PO SCH (09:27)
[2018-07-24] MEDS: VICTOZA SUBQ SCH (09:28)
[2018-07-24] MEDS ORDERED: DOXYCYCLINE PO SCH (11:30)
[2018-07-24 11:53] VITALS: BP 100/58
--- NOTE | 2018-07-24 11:55 | Diag Imaging Result Doc PS360 ---
CHEST-2 VIEWS - 07/24/2018 INDICATION: pneumonia COMPARISON: 07/21/2018 FINDINGS: There are stable bilateral perihilar infiltrates. There is some stable linear atelectasis bilaterally mainly in the left midlung. No new infiltrates. No pneumothorax or pleural effusion. Heart size remains normal. IMPRESSION: No change from prior. Electronically signed by Gaurav Real 07/24/2018 11:53 AM
--- NOTE | 2018-07-24 12:20 | INFECTIOUS DISEASE PROGRESS NO ---
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 This is day 11 of treatment with the combination of Zithromax, cefepime and vancomycin. The patient also is receiving vaginal GYNE-Lotrimin, nystatin swish and swallow, mupirocin ointment to the nostrils and Valtrex. The patient also had 1 dose of IVIG during this admission. PHYSICAL EXAMINATION: Vital Signs: Temperature is 97.5 degrees, pulse 77, respirations 14, blood pressure 98/63. General: This is a chronically ill-appearing, middle-aged female. She is in no acute distress. Head/eyes/ears/nose/throat: She can hear my spoken words and see near objects. She does not have any more white patches on her tongue. The visualized portions of her nostrils are less erythematous. Neck: The patient does not have any pain when she turns her head. Lungs: Clear to auscultation. Cardiovascular: Heart rate is regular. Abdomen: Soft and nontender. Neurologic: The patient is alert and oriented. She is able to ambulate without difficulty. LAB AND X-RAY: There is no new lab or x-ray for today. ASSESSMENT AND PLAN: The patient very much would like to go home. I have discussed the patient's case with Dr. Kirk. Our plan is the following: We are going to stop her IV antibiotics and say that an IV is not needed in the patient for now, and I am instead putting the patient on doxycycline and Ceftin. I have ordered a CBC and a creatinine and a chest x-ray, and if the lab and chest x-ray look good, then our plan will be to send the patient home on p.o. doxycycline and Ceftin as mentioned above. COMORBIDITIES: The patient has sarcoidosis and she is treated with steroids for it. She also is a diabetic and she has coronary artery disease. cc: Efren Duque MD
[2018-07-24 12:49] LABS: BASO# 0.02 X1000 (0.0-0.2); BASO% 0.1 % (0.0-0.8); EOS# 0.11 X1000 (0.0-0.7); EOS% 0.8 % (0.0-10.0); HEMATOCRIT 35.9 % (37.0-47.0); HEMOGLOBIN 11.6 g/dL (12.0-16.0); IMM GRAN# 0.17 X1000 (0.0-0.04); IMM GRAN% 1.2 % (0.0-0.5); LYMPH# 1.09 X1000 (1.2-3.4); LYMPH% 7.6 % (20.5-51.1); MCH 29.5 PG (27-31); MCHC 32.3 g/dL (33-37); MCV 91.3 FL (81-99); MONO% 5.6 % (1.7-9.3); MPV 9.9 FL (7.4-10.4); NEUT# 12.21 X1000 (1.4-6.5); NEUT% 84.7 % (42.2-75.2); PLT 251 X1000 (130-400); RBC 3.93 XMIL (4.2-5.4); RDW 14.9 % (11.5-14.5)
[2018-07-24] MEDS ORDERED: CEFTIN PO SCH (13:00)
--- NOTE | 2018-07-24 13:50 | DISCHARGE SUMMARY ---
ADMISSION DATE: 07/09/2018 DISCHARGE DATE: 07/24/2018 HISTORY OF PRESENT ILLNESS: A 58-year-old female presented to [facility] after she had seen her primary care physician. States that she has had a productive cough for 1 month, progressively worsened, subjective fever, some chest tightness, history of sarcoidosis and asthma in the past. Had a chest x-ray by primary care physician, read as pneumonia and sent her to the emergency room. When she arrived, O2 saturations were 94%. Lab data showed white blood cell count 53574, blood sugar was 230, plasma lactate at 2.3. X-ray showed bilateral infiltrates, possible pulmonary edema, so admitted. ADMISSION DIAGNOSES: 1. Possible sepsis, bilateral pneumonia, leukocytosis with underlying history of sarcoidosis and asthma. 2. Diabetes mellitus type 2. Pattern her sugars. 3. Hypothyroidism. Appeared to be euthyroid on exam. HOSPITAL COURSE: I gave her bronchodilators and started her on Solu-Medrol and antibiotics. CT of the chest done on 07/12/2018 showed mild pulmonary fibrosis, bronchiectasis, bronchopneumonia, possibility of chronic aspiration and granulomatous disease as a cause of bronchiectasis suggested. We do know she has a history of sarcoidosis. Infectious Disease was consulted. Appeared to have acute pneumonia with immunosuppression. She is on immunosuppressive therapy, so we continued cefepime and Zosyn. There was some evidence that showed the Zosyn and vancomycin given together possible renal toxicity, so changed those to cefepime and Zosyn and stopped the nitrofurantoin as it can cause some pulmonary problems including fibrosis. Ordered a QuantiFERON gold, histoplasma antigen, immunoglobulin levels. She did develop some coating on her tongue and treated her for oral thrush. On 07/16/2018, repeat a chest x-ray which is improved. [place] there was superimposed pulmonary fibrosis, and she improved in her strength, continued to have a cough, the cough was more productive. Chest x-ray on 07/19/2018, significant improvement, and felt that she could go home on 07/24/2018. The patient had immunoglobulin deficiency and so had received some IV immunoglobulin. She also got vaginal Gyne-Lotrimin and some nystatin for oral thrush and vaginal candidiasis. She just got 1 dose of the IV immunoglobulin. X-ray improved clinically much better so we stopped her IV antibiotics. Still had an elevation of white blood cell count thought was secondary to the steroids and will be put on doxycycline and Ceftin and plan to discharge her home. DISCHARGE ORDERS: She will be on Ceftin 500 mg q.12 and doxycycline 100 mg q.12. We will give her some Mucinex 600 mg b.i.d. We will continue her amitriptyline 100 mg daily. I think she gets Xanax 1 mg daily p.r.n. Aspirin 81 mg a day, Lipitor 40 mg a day, Alphagan eyedrops 0.15% both eyes b.i.d., Flonase 2 puffs each nostril daily, Advair 500/50 b.i.d., Neurontin 800 mg t.i.d., Mucinex 600 mg b.i.d., insulin glargine 10 units subcutaneous at bedtime, Xalatan eye drops 0.005% both eyes at bedtime, Synthroid 50 mcg daily, Victoza 1.5 mg daily, Toprol-XL 25 mg daily, Prilosec 40 mg a day, MiraLAX 17 g p.o. b.i.d., prednisone 20 mg a day, and we will give her Medrol at 20 mg daily and then have her taper down. Imitrex 100 mg p.o. daily p.r.n. migraine headaches, Spiriva 1 puff daily, Topamax 50 mg at bedtime, Valtrex 1000 mg p.o. q.12, Effexor 75 mg a day. We will go ahead and stop the Valtrex at this point. cc: Nelson Kirk MD
[2018-07-24] MEDS ORDERED: PNEUMOVAX 23 IM ONE (16:56)
== END 2018-07-24 17:54 | disposition home or self-care (01) | DRG 871 ==
LOC: ED 11:51 → SUATTDRO 16:11 → EDIPHOLD 16:11 → 3N 07-11 11:20
PROVIDERS: ATTEND Emergency Medicine
CPT/HCPCS: 71010; 71020; 71045; 71046; 71260; 80048; 80053; 80202; 81001; 82550; 82565; 82784; 82948; 83036; 83605; 83615; 83735; 83880; 84132; 84484; 85025; 85610; 85730; 86480; 87040; 87070; 87077; 87088; 87186; 87449; 87899; 90732; 93005; 94640; 94761; 94799; 96365; 96366; 96367; 96372; 96375; 96376; 97162; 99285; A9270; J0692; J1561; J1650; J1940; J2543; J2920; J2930; J3370; J3480; J7030; J7050; J7506; J7512; Q9967; XXXXX